=== PATIENT | male | born 1960 | race Caucasian/White ===

== ENCOUNTER 2021-08-04 08:30 | Outpatient (CLI) | payer BC, SELFPAY | END 2021-08-04 08:31 | disposition home or self-care (01) | LOC: SLEEP 08-05 13:28 | PROVIDERS: Family Provider Family Medicine; PCP Family Medicine; Visit Provider Family Medicine | DX: G47.30 Sleep apnea, unspecified (principal); R53.83 Other fatigue | CPT/HCPCS: G0399 ==

== ENCOUNTER 2024-10-22 10:16 | Outpatient (CLI) | payer MEDICARE, OTHER, SELFPAY ==
[2024-10-22 11:00] LABS: Anion Gap 13.2 (5-19); Blood Urea Nitrogen 16 mg/dL (8-23); Calcium 9.6 mg/dL (8.5-10.5); Carbon Dioxide 28 mmol/L (22-29); Chloride 100 mmol/L (98-107); Glomerular Filtration Rate 113.2 mL/min (90-130); Glucose 140 mg/dL (65-115); Osmolality Calculated 287 mOsm/kg (285-295); Potassium 4.2 mmol/L (3.5-5.1); Sodium 137 mmol/L (136-145)
== END 2024-10-22 10:17 | disposition home or self-care (01) ==
LOC: LAB 10:26
PROVIDERS: PCP Family Medicine; Visit Provider Nurse Practitioner Family
DX: I25.5 Ischemic cardiomyopathy (principal); E78.5 Hyperlipidemia, unspecified
CPT/HCPCS: 36415; 80048

== ENCOUNTER → 2025-01-21 09:07 | Outpatient (BNVA) | payer MEDICARE, OTHER, SELFPAY | PROVIDERS: PCP Family Medicine; Visit Provider Family Medicine | DX: I10 Essential (primary) hypertension (principal); I25.5 Ischemic cardiomyopathy; E78.5 Hyperlipidemia, unspecified; E66.9 Obesity, unspecified; G47.33 Obstructive sleep apnea (adult) (pediatric); R73.9 Hyperglycemia, unspecified | CPT/HCPCS: 80053; 80061; 83036; 85025 ==

== ENCOUNTER → 2025-01-30 08:01 | Outpatient (BNVA) | payer MEDICARE, OTHER, SELFPAY | PROVIDERS: PCP Family Medicine; Visit Provider Physician Assistant | DX: M17.0 Bilateral primary osteoarthritis of knee (principal) | CPT/HCPCS: 73560; 73565; 99204 ==

== ENCOUNTER → 2025-03-06 14:08 | Outpatient (BNVA) | payer MEDICARE, OTHER, SELFPAY | PROVIDERS: PCP Family Medicine; Visit Provider Physician Assistant | DX: Z01.818 Encounter for other preprocedural examination (principal); M17.0 Bilateral primary osteoarthritis of knee; M25.569 Pain in unspecified knee | CPT/HCPCS: 36415; 80053; 81001; 85025; 99213 ==

== ENCOUNTER → 2025-03-11 11:54 | Outpatient (BNVA) | payer MEDICARE, OTHER, SELFPAY | PROVIDERS: PCP Family Medicine; Visit Provider Family Medicine | DX: Z01.818 Encounter for other preprocedural examination (principal); R94.31 Abnormal electrocardiogram [ECG] [EKG] | CPT/HCPCS: 93005 ==

== ENCOUNTER 2025-03-12 08:42 | Outpatient (CLI) | payer MEDICARE, OTHER, SELFPAY ==
--- NOTE | 2025-03-12 09:00 | CT_ITS ---
WS: [id number] CT LEFT knee, noncontrast HISTORY: M17.0 - Bilateral primary osteoarthritis of knee TECHNIQUE: Protocol for [facility] total knee replacement has been obtained. This includes axial imaging through the LEFT hip, LEFT knee and LEFT ankle. DLP: 1049.17 mGy.cm COMPARISON: 01/30/2025 radiograph Foot is held in external rotation for this examination. There is also motion artifact. Hip: Narrowing of the SI joints. No bone destruction. Mild narrowing of the LEFT hip joint. Enthesopathy at the greater trochanter. Sigmoid diverticulosis. LEFT knee: Severe joint space narrowing with large hypertrophic osteophytes in all 3 compartments. Normal position of the patella. Patellar enthesopathies. Arterial calcifications. Small suprapatellar effusion. LEFT ankle: Enthesopathy at the Achilles tendon insertion. Degenerative changes in the midfoot. CT/CT knee LT [facility] [id number] IMPRESSION: CT imaging provided for [facility] robotic total knee replacement.
== END 2025-03-12 08:43 | disposition home or self-care (01) ==
LOC: RAD 08:43
PROVIDERS: PCP Family Medicine; Visit Provider Student in an Organized Health Care Education/Training Program
DX: M17.0 Bilateral primary osteoarthritis of knee (principal)
CPT/HCPCS: 73700

== ENCOUNTER 2025-03-25 10:41 | Observation (INO) | payer MEDICARE, OTHER, SELFPAY ==
[2025-03-25] VITALS (21 sets, daily range): BP systolic 112–153; BP diastolic 55–85; PULSE 68–93; RESP 15–23; TEMP 36.3–36.7; O2SAT 91–96; BMI 39.4; BMI 40.6
[2025-03-25] MEDS: acetaminophen 1,000 MG/100 ML PIGGYBACK 400 MG IV ×3 (06:25→18:04)
[2025-03-25 06:43] LABS: Hematocrit 43.4 % (37-53); Hemoglobin 14.60 g/dL (11.27-16.99); Mean Corpuscular HGB Conc 33.6 g/dL (30-55); Mean Corpuscular Hemoglobin 31.8 pg (27-33); Mean Corpuscular Volume 94.6 fl (82-101); Nucleated Red Blood Cells % 0 %; Platelet Count 199 10^3/cmm (157-399); Red Blood Count 4.59 10^6/uL (3.85-5.65); White Blood Count 5.79 10^3/uL (3.29-11.43)
--- NOTE | 2025-03-25 06:55 | W.PM.OPSUD ---
Surgery/Procedure H&P Update DATE OF PROCEDURE: March 25, 2025 DATE H&P PERFORMED: 03/06/25 H&P UPDATE INFORMATION: I have reviewed H&P completed within last 30 days, I have examined patient prior to procedure and No changes to prior documentation PREOP DIAGNOSIS: Left Knee DJD PRIMARY INDICATION FOR PROCEDURE: Left Knee DJD PLANNED PROCEDURE: Operation Date: 03/25/25 07:00 Proposed Procedures p LEFT Chris Robot Total Knee Arthroplasty(Left) - Harry Neal DO
--- NOTE | 2025-03-25 07:12 | P.ANESASSM_ITS ---
Pre-Anesthetic Assessment Height/Weight: Height 1.91 m Weight 143.335 kg Temp Pulse Resp BP Pulse Ox O2 Del Method 97.9 F 68 18 153/85 96 Room Air 03/25/25 06:11 03/25/25 06:11 03/25/25 06:11 03/25/25 06:26 03/25/25 06:11 03/25/25 06:14 Preop Diagnosis: Left Knee DJD Operation Date: 03/25/25 07:00 Proposed Procedures p LEFT Chris Robot Total Knee Arthroplasty(Left) - Harry Neal DO Familial anesthetic complications: None Was Beta Flora taken within 24 hours: N/A Was Clonidine taken within 24 hours: N/A Last intake: Intake Last Liquid Date 03/24/25 Last Liquid Time 20:00 Last Solid Date 03/24/25 Last Solid Time 19:00 Social No alcohol and No tobacco Exam alert, oriented x 3, clear to auscultation bilaterally and regular rate & rhythm Airway Mallampati: Class II Dentition: full Pulmonary Sleep Apnea CV/HEM Coronary Artery Disease and Hypertension Anesthetic Plan ASA status: 3 Anesthesia: Regional (specify below) Risk of > 500 ml blood loss (7ml/kg in children): Yes, adequate IV access and fluids planned Medications/Allergies Home Medications ?Medication ?Instructions ?Recorded ?Confirmed ?Last Taken ?Type diphenhydramine HCl 25 mg capsule 25 mg PO BID PRN Itc krishna 04/21/20 03/21/25 Unknown History (Benadryl) multivitamin (Multiple Vitamins 1 tab PO DAILY 0 03/21/25 03/21/25 History tablet) nitroglycerin 0.4 mg sublingual 0.4 mg sublingual Q5M PRN chest 05/02/24 03/21/25 Unknown Rx tablet pain #25 tabs valsartan 160 mg tablet 160 mg PO BID #180 tabs 12/01/1003/21/25 1 Day Ago Rx ~03/20/25 amlodipine 10 mg tablet 10 mg PO DAILY #90 tabs 09/1903/21/25 1 Day Ago Rx ~03/20/25 atenolol 50 mg tablet 50 mg PO DAILY #90 tabs 09/1903/21/25 1 Day Ago Rx ~03/20/25 rosuvastatin 20 mg tablet (Crestor) 20 mg PO DAILY #90 tabs 10/01/24 03/21/25 03/21/25 Rx chlorthalidone 25 mg tablet 25 mg PO .daily #90 tabs 0 12/03/24 03/21/25 1 Day Ago Rx ~03/20/25 Allergies Allergy/AdvReac Type Severity Reaction Status Date / Time No Known Allergies Allergy Verified 03/21/25 11:02 [facility] Anesthesia Medical History JESS (obstructive sleep apnea) ASHD (arteriosclerotic heart disease) Ischemic cardiomyopathy Obesity Dyslipidemia HTN (hypertension) Surgical History S/P PTCA (percutaneous transluminal coronary angioplasty) Family History Mother Stroke Cancer BREAST Father , AGE 58 CAD (coronary artery disease) Myocardial infarction Social History Smoking and tobacco/nicotine status: never used tobacco/nicotine Alcohol intake: current Substance/Drug Use: never Household members: spouse Marital status: Data Anesthesia 03/25/25 06:15 03/25/25 07:00 Short CBC 03/25/25 Range/Units 06:15 WBC 5.79 (3.29-11.43) 10^3/uL Hgb 14.60 (11.27-16.99) g/dL Hct 43.4 (37-53) % MCV 94.6 (82-101) fl Plt Count 199 (157-399) 10^3/cmm Neut % (Auto) 46.9 % Neut # (Auto) 2.72 (1.8-7.7) 10^3/uL BMP 03/25/25 06:15 Sodium Cancelled Potassium Cancelled Chloride Cancelled Carbon Dioxide Cancelled BUN Cancelled Creatinine Cancelled Glucose Cancelled Calcium Cancelled Blood Bank 03/25/25 06:15 Blood Type Cancelled Rho(D) Type Cancelled Antibody Screen Cancelled Anesthesia Procedures Nerve Block Nerve Block 1: Main Anesthesia: spinal anesthesia block Consent: requested by attending/covering physician, from patient, from other, risks and benefits reviewed and patient agrees to proceed Nerve block location: adductor canal (L) Anesthesia monitors applied: pulse oximetry, EKG, BP cuff and oxygen Nerve block position: supine Anesthetic Used: ropivicaine 0.5% (30 ml) and with decadron (4 mg) Ultrasound used to: recognize landmarks and visualize and ID femerol nerve Interscalene/Femoral BLK: 2 stimuplex 22 g needle used for position and inplane approach, visualize local anesthetic spread and no vascular puncture identified Injection: neg aspiration of heme Patient Tolerated Procedure: well Complications: none
[2025-03-25] MEDS: ceFAZolin 3,000 MG in sodium chloride 0.9% (plus) 100 ML 200 MG IV (07:20)
[2025-03-25] MEDS: tranexamic acid 1,000 mg/10mL SDV 1000 MG IV (07:31)
--- NOTE | 2025-03-25 07:34 | XRR_ITS ---
PROCEDURE INFORMATION: Exam: XR Left Knee Exam date and time: 03/25/2025 10:26 AM Age: 64 years old Clinical indication: Device placement; Joint replacement hardware; Prior surgery; Surgery date: Post-operative (0-2 days); Surgery type: Lef tka; Additional info: Post L tka, do in pacu TECHNIQUE: Imaging protocol: Radiologic exam of the left knee. Views: 1 or 2 views. COMPARISON: CT knee LT [facility] [id number] 03/12/2025 9:10 AM FINDINGS: Bones/joints: Intact well-aligned total knee arthroplasty. No acute fracture. Soft tissues: Skin janki and soft tissue gas noted. XR/XR knee LT 1-2V [id number] IMPRESSION: Expected postoperative appearance of the knee.
[2025-03-25 07:35] LABS: Anion Gap 16.2 (5-19); Blood Urea Nitrogen 20 mg/dL (8-23); Calcium 9.0 mg/dL (8.5-10.5); Carbon Dioxide 25 mmol/L (22-29); Chloride 103 mmol/L (98-107); Creatinine Clr Calc Pharmacy 140.6693; Glucose 159 mg/dL (65-115); Osmolality Calculated 296 mOsm/kg (285-295); Potassium 4.2 mmol/L (3.5-5.1); Sodium 140 mmol/L (136-145)
[2025-03-25] MEDS: tranexamic acid 1,000 mg/10mL SDV 1000 MG XX (08:25)
[2025-03-25] MEDS: ROPivacaine 0.2% Premix 100 mL 200 MG INTRA-ARTI (08:25)
--- NOTE | 2025-03-25 10:11 | W.PM.BPON ---
Date of Procedure: 03/25/2025 Surgeon: Harry Neal DO Design [employer]ing Machine Set Up Operator(s): Stone Neal PA-C Procedure(s) performed: Left total knee arthroplasty?Chris robotic assisted (modifier 22?case complexity secondary to patient's 22 degree flexion contracture deformity and only could flex to 85 degrees, this requiring numerous releases and complexity and gap balancing due to patient's contracture, case required twice as much time for osteophyte removal as well as gap balancing and femur patellar and tibia cuts) Findings of the procedure(s): Patient procedure went as planned without issues or complications he did have a severe flexion contracture deformity as well as significant osteophyte formation. Underwent procedure then as planned without issues or complications taken recovery stable condition. Estimated blood loss: 25 mL Specimen(s) removed: Tibia femur and patellar bone cuts removed Post-operative diagnosis: Left knee DJD severe
--- NOTE | 2025-03-25 10:16 | PM.OP ---
Operative Report Date of procedure: March 25, 2025 Surgeon: Harry Neal DO Veterinary Manager: Stone Neal PA-C: PA was necessary for assistance in this case with leg positioning, assistance with complex balancing and osteophyte removal, retraction and protection of neurovascular structures as well as assistance in implantation, wound closure and dressing application. Procedure: Preoperative diagnosis: Left knee degenerative joint disease Post-op diagnosis: Same, with severe flexion contracture Procedure done: Left total knee arthroplasty?Chris robotic assisted (modifier 22?case complexity secondary to patient's 22 degree flexion contracture deformity and only could flex to 85 degrees, this requiring numerous releases and complexity and gap balancing due to patient's contracture, case required twice as much time for osteophyte removal as well as gap balancing and femur patellar and tibia cuts) Implants: Moro triathlon size 7 femur CR cemented?left Moro triathlon size? 6 tibia universal baseplate cemented Wilmar triathlon asymmetric patella size 38 mm Moro triathlon polyethylene 9mm Surgeon: Harry Neal DO Estimated blood?loss: 25 mL Tourniquet 91minutes IV fluids: 1400 mL Urine output: 200 mL Complications: None Condition: stable Disposition: floor Brief History: Patient is a 64-year-old male with with chronic?left knee degenerative joint disease.? Patient has been worked up in the outpatient setting in the orthopedic office at this point time through shared decision making given? [id number] arthritis as well as failed conservative treatment, and pt would?like to proceed with a?left total knee arthroplasty.? Through shared decision making elected to proceed with surgical intervention for?left total knee arthroplasty with Chris robotic assisted..? We talked about continued conservative treatment and surgical intervention as far as the risk benefits complications alternatives surgical and nonsurgical treatment options.? At this point time understanding patient risks with surgery he agrees to proceed with surgical intervention.? Once again? risk with surgery include but are not?limited to make it better make it worse blood clot, heart attack, stroke, on the table, infection, injury to nerves or vessels, persistent pain, arthrofibrosis, implant failure.? Understanding these risks patient agrees to proceed with surgical intervention consent was obtained in the preoperative holding area for left total knee arthroplasty?Chris robotic assisted.? All questions answered. Procedure: Patient was seen and evaluated in the preoperative holding area.? Consent was reviewed and signed with patient with plan for?left total knee arthroplasty.? All questions answered.? Correct extremity marked.? Patient seen and evaluated by the anesthesia department and once cleared for surgery was taken back to the operative suite.? Patient was placed into a supine position on the OR table.? All bony prominences were well-padded.? Patient was appropriately secured to the bed.? Patient underwent anesthesia per the anesthesia department.? Patient received anesthesia and? Cheatham catheter was placed.? A nonsterile tourniquet was applied to the?left thigh.? At this point in time a final timeout performed.? Patient received appropriate preoperative antibiotics and TXA. Next the?left?lower extremity was then prepped and draped in standard orthopedic fashion. Esmarch tourniquet was used exsanguinate the?left?lower extremity.? Tourniquet was insufflated to 250 mmHg. A standard anterior incision was made over midline of the knee.? Sharp scalpel excision through skin and subcutaneous tissue full-thickness skin flaps were made.? Fascia was elevated off of the extensor retinaculum was stable with medial parapatellar arthrotomy was then made.? The performed standard sequential releases..? Immediately on entry into the joint patient was found to have severe eburnated bone and tricompartmental arthritic changes noted.? With significant osteophyte formation.? Patient of note was found to have a severe contracture immediately encountering the joint or the knee only ranged from roughly 20 to 85 degrees. I had to utilize a rongeur around patella osteophytes immediately just to have mobilization for flexion just to proceed the case. Next the the patella was then stuffed and the knee was then flexed.?? Willis was placed superiorly around the anterior aspect of the femur this was freed of synovium and I subsequently then placed by 2 femur pins to establish my femur arrays for the Chris robot.? These were then placed bicortically and? femur array was then appropriately secured with appropriate visualization.? Next attention was turned towards the tibial rays.? These were then drilled sequentially bicortically in parallel fashion and intraincisional.? I then placed my guide as well as my tibial array on in place.? This was appropriately secured and had excellent visualization with the Chris robot.? Next the tibial checkpoint as well as femur checkpoint were then placed.? At this point time I then subsequently established my head center as well as my medial?lateral malleoli as well as my checkpoints.? Next utilizing standard Chris technology I then mapped out the appropriate points and confirmation points around the femur as well as the tibia in standard fashion.? Once this was then done I then removed all osteophytes in preparation for dynamic testing.? All osteophytes were removed as well as I removed the ACL and the PCL was excised due to its significant tearing and degeneration noted.? Should be noted that this portion of the procedure took excessively long. Patient's severe flexion contracture which was 22 degrees and only ranged to roughly 80 to 85 degrees. This part of the procedure took twice as long to remove the osteophytes then baseline. At this point time the knee was brought into full extension and we performed our standard evaluation of our gap balancing stressing his?ligaments and extension as well as flexion appropriate adjustments were made to have appropriate gap balancing in both flexion and extension.? This plan for final cuts were planned which were made to accommodate for patient's severe flexion contracture as well as correction of deformity within the ligamentous tolerances. Of note this gap balancing and dynamic stress testing and planning for cuts took twice as long as a normal total knee due to its complexity of contracture.? We get a preoperative plan evaluating our implants which was a size 7 femur and a size 6 tibia.? Next we brought in the Chris robot and sequentially made our femur cuts.? All excess bony cuts were then removed.? Finally we made our tibial cut.? Given patient's severe arthritis once again removal of patient's femur and tibial cuts took twice as long as baseline standard total knee practice. Once this was done a standard PCL retractor was then placed into this position I excised the medial and?lateral meniscus.? The tibial cut was then subsequently removed all excess bony debris was removed.? I then utilized a?lamina customer resolution specialist and remove the posterior osteophytes.? At this point time sized the tibia and confirmed this was a size 6.? I utilized our blunt probe to establish rotation of tibial implant.? Once this was done I then placed my tibia size 6 trial in appropriate position and then subsequently placed tibial pins to hold this into place placed and trialed up to a size 9 mm poly as well as a size 7 femur which was appropriately impacted in place knee was then subsequently brought into extension. Trials were then assessed,? this was stable with varus valgus stress in extension as well as had symmetrical translation when brought into flexion demonstrating symmetrical gaps. I had excellent balance gaps in flexion and extension with varus and valgus stresses.? At this point I was satisfied with these implants these were then verified and opened on the back table size 6 tibia, size 7 femur,? size 9 mm polythickness.? We did confirm appropriate gap balancing and stresses as well as alignment utilizingShe Perez and were satisfied with this plan.? ?At this point time with my trials in place I then towel clip the patella everted this made appropriate measurements subsequently utilizing freehand technique performed by patellar resurfacing this was confirmed to be appropriate resection and subsequently sized to be a 38 mm asymmetric. This part of the procedure took twice as well as baseline given patient's severe osteophytes which must have been removed initially. Patient had a severely large patella and considerable deformity this is noted to being 26 mm thick and utilizing freehand technique perform patellar resurfacing. My drill peg guides were then clamped and appropriate position and appropriate position in the patella for appropriate tracking and parallel with the joint.? Pegs were drilled trial implant was placed and the knee was then subsequently ranged and found to have excellent patellar tracking.? Femur pegs were then drilled.? At this point time all of our trial implants were removed.? All checkpoints as well as guidepins and arrays were removed and appropriate counts made.? Satisfied with our tibial placement rotation I then utilized the keel punch and prepped the tibia.? The wound bed? was thoroughly irrigated and dried and prepped for cementation.? Cement was mixed on the back table.? Once cement was ready this was then covered onto the tibia and the tibial baseplate was then impacted and all excess cement was removed.? Next the polyethylene was then impacted into place on the tibial baseplate.? Next cement was placed onto the femur as well as under the femur implants and impacted in to place and all excess cement was extruded and removed.? Knee was taken into full extension? to clear all excess cement was removed.? Warm saline was placed over the joint.? I then towel clip patella and dried for cementation. cemented the patella into place.? This was all clamped and the cement was allowed to cure.? Thorough irrigation performed with pulse?lavage.? I then placed my periarticular injection while the cement was curing.? Once cured the knee was taken through range of motion and had excellent stability and gaps were balanced in flexion and extension.? Tourniquet was then deflated. hemostasis satisfactory with electrocautery.? Vancomycin powder was placed in wound bed for antibiotic infection prophylaxis next I then subsequently closed the capsule with Ethibond suture as well as a running strata fix suture.? Knee was then taken through range of motion 30 times.? Next the skin was then closed in?layered fashion of running stratifix sutures of deep and subcutenous tissue and skin.? ?closed in flexion and janki for skin.? Incision was covered with francisco incisional VAC, with ABDs soft roll and Martin wrap.? Patient was then awakened from anesthesia and taken to PACU in stable condition. Disposition: Patient taken to PACU in stable condition will be admitted to the floor for pain control PT/OT weight-bear as tolerated?left?lower extremity dressing changes as needed, DVT prophylaxis. We will attempt to utilize CPM if possible per patient request. Pain control. Patient will receive appropriate postoperative antibiotics. patient will be seen today by the internal medicine team for medical management.? Patient will follow up with the office in 2 weeks.? Patient understands agrees with current plan.? All questions answered.
--- NOTE | 2025-03-25 10:21 | PM.PACU ---
PACU note Narrative: Patient is a 64-year-old male that just underwent a left total knee arthroplasty. Pt transferred to PACU in stable condition. Dressing is dry. pt is awake and alert. pt can wiggle toes and plantarflex and dorsiflex foot. pt able to perform straight leg raise, Femoral nerve intact. Distal pulses are palpable toes are warm and well-perfused. Cap refill is normal and under 2 seconds. Sensation to foot is intact. Pain is controlled. Exam: awake Disposition: admitted
--- NOTE | 2025-03-25 10:45 | ANE.PACU2 ---
Inpatient post-anesthesia follow up: Airway intact: Yes Vital signs: Temperature 97.7 F Pulse Rate 78 Respiratory Rate 16 Blood Pressure 147/66 Pulse Oximetry 96 Oxygen Delivery Me thod Room Air Oxygen Flow Rate 2 Fraction of Inspir ed Oxygen Hydration adequate: Yes Nausea and vomiting: No Pain level: 1 Mental status: Baseline
--- NOTE | 2025-03-25 11:02 | PC.NURSE ---
1044 - Patient taken to room 272 via bed. VS taken - Temp 97.7, HR 79, BP 137/70, 02 sat 93% on room air. Bed alarm set, CLWR. BRANDON Reyes at bedside.
[2025-03-25] MEDS: sennosides-docusate Tablet 2 TAB PO ×2 (11:54→17:36)
[2025-03-25] MEDS: mupirocin oint 22 gm 1 APPLIC NASAL ×2 (11:54→17:36)
[2025-03-25] MEDS: calcium carb-vit d 600mg/400unit 1 Tablet 1 EACH PO ×2 (11:55→17:36)
[2025-03-25] MEDS: multivitamin therapeutic Tablet 1 TAB PO (11:55)
[2025-03-25] MEDS: chlorhexidine gluconate 0.12% Btl 473 mL 30 ML MUCOUS MEM ×4 (11:56→21:49)
[2025-03-25] MEDS: oxyCODONE 5 mg IR Tab/Cap PO ×3 (12:08→21:48)
[2025-03-25] MEDS: tranexamic acid 1,000 MG/100 ML PREMIX 600 MG IV (14:53)
[2025-03-25] MEDS: ceFAZolin 3,000 MG in sodium chloride 0.9% (plus) 50 ML 100 MG IV ×2 (14:56→23:15)
--- NOTE | 2025-03-25 19:44 | PM.CONSULT ---
Providers/Reason For Consult Consulting Physician/Specialty*: Castillo Mar MD hospitalist Reason for Consult*: Diabetes, sleep apnea, coronary artery disease Requesting Physician: Harry Neal Attending Physician: Harry Neal DO Primary Care Provider: Goldy Vanegas DO History of Present Illness History of Present Illness Akil Kapoor is a 64 year old male with history of ME age 34, morbid obesity up to a maximum of 410 pounds diabetes treated with diet and weight loss and sleep apnea treated with CPAP at a pressure of 19 with a nasal pillows. Patient had left total knee arthroplasty earlier today and has already been up independently to the bathroom twice. 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 Neal asked me to see him regarding diabetes patient states he does not want to be on insulin and does not want to have his blood sugars checked. He states last time he checked it was 100 and his A1c most recently was 7. Patient denies chest pain. He tells me he had PTCA at age 34 and the patient states he did not have a stent in the vessel restenosed but he has collaterals by that time Patient states that his PCP recommended him take a carnivore diet for weight loss. Patient is not on diabetic medications nor is he on GLP-1's for weight loss Medications/Allergies Home Medications ?Medication ?Instructions ?Recorded ?Confirmed ?Last Taken ?Type diphenhydramine HCl 25 mg capsule 25 mg PO BID PRN Itching 04/21/20 03/21/25 Unknown History (Benadryl) multivitamin (Multiple Vitamins 1 tab PO DAILY 04/21/20 03/21/25 03/21/25 History tablet) nitroglycerin 0.4 mg sublingual 0.4 mg sublingual Q5M PRN chest 05/02/24 03/21/25 Unknown Rx tablet pain #25 tabs valsartan 160 mg tablet 160 mg PO BID #180 tabs 08/22/24 03/21/25 1 Day Ago Rx ~03/20/25 amlodipine 10 mg tablet 10 mg PO DAILY #90 tabs 10/01/24 03/21/25 1 Day Ago Rx ~03/20/25 atenolol 50 mg tablet 50 mg PO DAILY #90 tabs 10/01/24 03/21/25 1 Day Ago Rx ~07/02/25 rosuvastatin 20 mg tablet (Crestor) 20 mg PO DAILY #90 tabs 10/01/24 03/21/25 03/21/25 Rx chlorthalidone 25 mg tablet 25 mg PO .daily #90 tabs 12/03/24 03/21/25 1 Day Ago Rx ~03/20/25 oxycodone 5 mg tablet 5 mg PO Q6H PRN pain postop 7 days 03/25/25 Unknown Rx #28 tabs Allergies Allergy/AdvReac Type Severity Reaction Status Date / Time No Known Allergies Allergy Verified 03/21/25 11:02 Current Medications Generic Name Dose Route Start Last Admin Trade Name Freq PRN Reason Stop Dose Admin Calcium Carbonate 1 each 03/25/25 10:57 03/25/25 17:36 Calcium Carb-Vit D 600mg/400unit 1 Tablet PO 1 each BID JERRY Administration Chlorhexidine Gluconate 30 ml 03/25/25 10:57 03/25/25 17:36 Chlorhexidine Gluconate 0.12% Btl 473 Ml MUCOUS MEM 30 ml QID JERRY Administration Acetaminophen 1,000 mg in 100 mls @ 400 mls/hr 03/25/25 10:57 03/25/25 18:41 Acetaminophen IV 03/26/25 03:11 Infused Q8H JERRY Infusion Lactated Ringer's 1,000 mls @ 100 mls/hr 03/25/25 10:57 03/25/25 15:59 Lactated Ringers IV 100 mls/hr .Q10H JRERY Infusion Cefazolin Sodium 3,000 mg/ 50 mls @ 100 mls/hr 03/25/25 15:30 03/25/25 17:03 Sodium Chloride IV 03/26/25 07:59 Infused Q8H JERRY Infusion Protocol Ketorolac Tromethamine 15 mg 03/25/25 10:57 03/25/25 16:44 Ketorolac 30 Mg/Ml Inj IVP 15 mg Q6H PRN Administration MODERATE TO SEVERE PAIN Multivitamins Therapeutic 1 tab 03/25/25 10:57 03/25/25 11:55 Multivitamin Therapeutic Tablet PO 1 tab DAILY JERRY Administration Mupirocin 1 applic 03/25/25 10:57 03/25/25 17:36 Mupirocin Oint 22 Gm NASAL 03/30/25 10:56 1 applic BID JERRY Administration Protocol Oxycodone HCl 5 mg 03/25/25 10:57 03/25/25 16:43 Oxycodone 5 Mg Ir Tab/Cap PO 5 mg Q4H PRN Administration MODERATE PAIN Polysaccharide Iron Complex 150 mg 03/25/25 10:57 03/25/25 17:36 Iron Polysaccharide Complex 150 Mg Capsule PO 150 mg BIDWM JERRY Administration Senna/Docusate Sodium 2 tab 03/25/25 10:57 03/25/25 17:36 Sennosides-Docusate Tablet PO 2 tab BID JERRY Administration PFSH Acute PFSH: Medical History (Updated 03/25/25 @ 19:50 by Castillo Mar MD) Diabetes JESS (obstructive sleep apnea) ASHD (arteriosclerotic heart disease) Ischemic cardiomyopathy Obesity Dyslipidemia HTN (hypertension) Surgical History (Updated 03/25/25 @ 19:50 by Castillo Mar MD) S/P knee surgery S/P PTCA (percutaneous transluminal coronary angioplasty) Family History Mother Stroke Cancer BREAST Father , AGE 58 CAD (coronary artery disease) Myocardial infarction Social History Smoking and tobacco/nicotine status: never used tobacco/nicotine Alcohol intake: current Substance/Drug Use: never Household members: spouse Marital status: Current occupation: [employer]/ retired Vitals/I&O/Wt Last Vital Signs Temp 98.1 F 03/25/25 17:55 Pulse 92 03/25/25 17:55 Resp 18 03/25/25 17:55 BP 151/84 03/25/25 17:55 Pulse Ox 95 03/25/25 17:55 O2 Del Method Room Air 03/25/25 11:41 O2 Flow Rate 2 03/25/25 10:44 03/25/25 03/25/25 03/25/25 06:59 14:59 22:59 Intake Total 1939 813.333 / 2753.333 Output Total 225 / 225 1400 / 1625 Balance 1715 / 1715 -586.667 / 1128.333 Weight last 48 hrs Weight 143.335 kg Weight 143.335 kg Physical Exam Narrative: General well-developed well-nourished male morbidly obese CV regular rate and rhythm Lungs clear to auscultation bilaterally Abdomen positive bowel tones soft nontender Calves no tenderness cords pretibial edema Urinary Catheter Management: Cheatham Latex Free: Cath Placed During This Visit: yes Reason for Continuing Indwelling Catheter: Required Immobilization for Trauma or Surgery or Anesthesia Urinary Catheter Date of Insertion: 03/25/25 Urinary Catheter Time of Insertion: 07:40 Data 03/25/25 06:15 03/25/25 07:00 A&P Assessment and plan (1) JESS (obstructive sleep apnea): Patient will continue on his home CPAP and he brought his ResMed 10. I helped him get this set up for use tonight (2) Diabetes: Patient declines blood sugar checks. He is willing to be on a carb restricted diet so I will put him on 2100-calorie ADA diet (3) S/P PTCA (percutaneous transluminal coronary angioplasty): Continue with low-fat diet. I discouraged carnivore diet as he has known tendency to build plaque. Would also recommend checking high-sensitivity C-reactive protein and lipoprotein a. Will add that to his morning labs Patient states that he is not worried about dying and feels that he has lived a good life at age 64 with 5 grandkids so does not want to make too much change (4) Obesity: Counseled regarding caloric deficit. Counseled regarding daily weights and he states he does that and has been losing weight (5) HTN (hypertension): Resume home blood pressure meds (6) Dyslipidemia: Resume rosuvastatin. He has an LDL of only 26 which is very good triglycerides elevated to 68. Could consider treatment for that. Will look at that and the setting of his lipoprotein a and high-sensitivity C-reactive protein PDMP PDMP Reviewed: Not Reviewed Consult Attestations Medical Necessity Statement: Anticipate the patient will be in the hospital 1-2 more midnights as he is recovering quickly Coding Level of Care Code 59445 Diagnoses JESS (obstructive sleep apnea) G47.33 Diabetes E11.9 S/P PTCA (percutaneous transluminal coronary angioplasty) Z98.61 Obesity E66.9 Essential hypertension I10 Hypertension type: essential hypertension Dyslipidemia E78.5 Time Spent (min) 40
--- NOTE | 2025-03-25 21:34 | PC.RESP ---
cpap pt has home cpap set up at bedside, pt is self sufficient with use of machine
[2025-03-26] VITALS (9 sets, daily range): BP systolic 136–162; BP diastolic 74–79; PULSE 62–74; RESP 16–18; TEMP 36.5–36.6; O2SAT 93–95
[2025-03-26] MEDS: oxyCODONE 5 mg IR Tab/Cap PO ×3 (01:29→13:34)
[2025-03-26] MEDS: acetaminophen 1,000 MG/100 ML PIGGYBACK 400 MG IV (03:49)
[2025-03-26 04:57] LABS: Hematocrit 36.2 % (37-53); Hemoglobin 12.10 g/dL (11.27-16.99); Mean Corpuscular HGB Conc 33.4 g/dL (30-55); Mean Corpuscular Hemoglobin 31.5 pg (27-33); Mean Corpuscular Volume 94.3 fl (82-101); Nucleated Red Blood Cells % 0 %; Platelet Count 171 10^3/cmm (157-399); Red Blood Count 3.84 10^6/uL (3.85-5.65); White Blood Count 9.49 10^3/uL (3.29-11.43)
[2025-03-26 05:14] LABS: Anion Gap 15.0 (5-19); Blood Urea Nitrogen 17 mg/dL (8-23); Calcium 8.7 mg/dL (8.5-10.5); Carbon Dioxide 25 mmol/L (22-29); Chloride 101 mmol/L (98-107); Creatinine Clr Calc Pharmacy 138.8724; Glucose 133 mg/dL (65-115); Osmolality Calculated 287 mOsm/kg (285-295); Potassium 4.0 mmol/L (3.5-5.1); Sodium 137 mmol/L (136-145)
[2025-03-26 05:44] LABS: CRP High Sensitivity Cardiac 0.560 mg/dL (0.0-0.3)
[2025-03-26] MEDS: ceFAZolin 3,000 MG in sodium chloride 0.9% (plus) 50 ML 100 MG IV (06:15)
[2025-03-26] MEDS: sennosides-docusate Tablet 2 TAB PO (08:46)
[2025-03-26] MEDS: multivitamin therapeutic Tablet 1 TAB PO (08:46)
[2025-03-26] MEDS: calcium carb-vit d 600mg/400unit 1 Tablet 1 EACH PO (08:46)
[2025-03-26] MEDS: mupirocin oint 22 gm 1 APPLIC NASAL (08:49)
[2025-03-26] MEDS: chlorhexidine gluconate 0.12% Btl 473 mL 30 ML MUCOUS MEM (08:49)
--- NOTE | 2025-03-26 10:21 | PC.CHAP ---
Pastoral Care Encounter/Spiritual Assessment Type of Contact [] Declined clerical grader visit [] Patient/Family/Request visit [] Outpatient visit [] Follow-up visit [] Physician referral [] Code/Alert [x] Routine visit [] Staff referral [] Actively dying [] Patient sleeping [] Family support [] [] Out of room [] Palliative care [] [] Receiving care in room [] Pre-surgical visit [] Trauma [] Long length of stay [] ICU visit [] Other: Relational/Emotional Strength [x] Patient feels connected with others/family/visitors/staff [] Distress [] Loneliness/isolation [] Abandonment Spirituality of Patient [x] Person of Abbie [] Attends Zoroastrian of their Abbie [x] Believes in Prayer [] Reads Bible or Roman Catholic materials [] There are Spiritual issues to be addressed Flange Turner Interventions [x] Prayer [x] Active listening [] Non-anxious presence [x] Spiritual/emotional support [] Crisis/trauma care [] Spiritual counseling [] Bereavement support [] Provided bereavement packet [] Provided Bible/devotional materials [] Provided toy/stuffed animal, coloring book to patient or family member [] Provided Communion [] Anointing/[place] [] Salvation [x] Completed spiritual assessment [] Other: Impact on Illness or Injury [] Angry [] Fearful [] Anxious [] Often cries [] Exhaustion [] Unable to work [] Unable to attend scientologist [] Unable to walk/stand [] Unable to read [] Unable to drive [] Unable to eat/drink [] Unable to sleep [] Unable to be with family [] Patient intubated [] Other: Summary Time spent with patient 5 min
--- NOTE | 2025-03-26 12:30 | PM.DCS ---
Discharge Providers Date of Admission: 03/25/25 10:41 Date of Discharge: March 26, 2025 Attending Provider at Admission: Harry Neal DO Attending Provider at Discharge: Harry Neal DO Consults: Dr Mar Primary Care Provider: Goldy Vanegas DO Diagnoses at Discharge Discharge Diagnosis 1. JESS (obstructive sleep apnea): 2. Diabetes: 3. S/P PTCA (percutaneous transluminal coronary angioplasty): 4. Obesity: 5. Essential hypertension: 6. Dyslipidemia: Reason for Visit Reason for Visit: M17.0 Brief History: Status post left total knee arthroplasty?Chris robotic assisted Hospital Course Hospital Course Patient presented to the preoperative holding area with plan for left total knee arthroplasty after patient has been worked up in the outpatient setting for failed conservative treatment of [ left] knee degenerative joint disease. Once cleared by anesthesia for surgery patient subsequently was taken back to the operative suite underwent anesthesia per anesthesia department and then subsequently underwent a [ left] total knee arthroplasty. Procedure was performed without any complications patient was taken to PACU in stable condition patient recovered well in PACU and then was admitted to the floor postoperatively internal medicine was consulted and on board for medical management and assistance with care. Patient received appropriate PT/OT, postoperative antibiotics, postoperative TXA, pain control, postoperative DVT prophylaxis. Elevation and ice. Patient encouraged for knee range of motion allowed weightbearing as tolerated to the operative lower extremity. Dressing was changed as needed, labs were monitored daily. Patient recovered well postoperatively and worked well and progressed well with therapy. It was determined on postoperative day 1 the patient was stable for discharge from an orthopedic standpoint and medicine. Patient was comfortable with discharge and plan was discharged home. Patient received appropriate discharge instructions as well as pain medication and DVT prophylaxis postoperatively. Given appropriate instructions for dressing management. Patient will follow-up with Dr. Neal/orthopedics in the office in 2 weeks. All questions answered. Understand if there is any issues questions or concerns and contact the office. Physical Exam Narrative: Left knee examination: Dressing on in place, clean dry and intact. No evidence of saturation. Patient has normal postoperative swelling and tenderness to palpation to the knee. Compartments are soft compressible,'s calf soft and nontender. Sensations intact to light touch distally. Distal pulses are palpable. Patient is able to wiggle toes as well as plantarflex and dorsiflex ankle. Urinary Catheter Management: Cheatham Latex Free: Cath Placed During This Visit: yes, but has since been removed by the nurse Reason for Continuing Indwelling Catheter: Other Urinary Catheter Date of Insertion: 03/25/25 Urinary Catheter Time of Insertion: 07:40 Date Urinary Catheter Removed: 03/26/25 Time Urinary Catheter Discontinued: 06:17 Discharge Data Studies Completed and Pending Completed Studies During Hospitalization Category Date Time Status XR knee LT 1-2V 17992 Routine Exams 03/25/25 07:34 Completed Radiology Impressions Knee X-Ray 03/25/25 07:34 IMPRESSION: Expected postoperative appearance of the knee. Laboratory Results WBC 9.49 10^3/uL (3.29-11.43) 03/26/25 04:44 RBC 3.84 10^6/uL (3.85-5.65) L 03/26/25 04:44 Hgb 12.10 g/dL (11.27-16.99) 03/26/25 04:44 Hct 36.2 % (37-53) L 03/26/25 04:44 MCV 94.3 fl (82-101) 03/26/25 04:44 MCH 31.5 pg (27-33) 03/26/25 04:44 MCHC 33.4 g/dL (30-55) 03/26/25 04:44 RDW 13.1 % (12.1-15.1) 03/26/25 04:44 Plt Count 171 10^3/cmm (157-399) 03/26/25 04:44 MPV 10.8 fL (7.4-10.4) H 03/26/25 04:44 Neut % (Auto) 68.4 % 03/26/25 04:44 Lymph % (Auto) 18.9 % 03/26/25 04:44 [place] % (Auto) 10.9 % 03/26/25 04:44 Eos % (Auto) 1.3 % 03/26/25 04:44 Baso % (Auto) 0.2 % 03/26/25 04:44 Neut # (Auto) 6.50 10^3/uL (1.8-7.7) 03/26/25 04:44 Lymph # (Auto) 1.8 10^3/uL (0.8-4.8) 03/26/25 04:44 [place] # (Auto) 1.0 10^3/uL (0.2-0.9) H 03/26/25 04:44 Eos # (Auto) 0.1 10^3/uL (0.0-0.8) 03/26/25 04:44 Baso # (Auto) 0.0 10^3/uL (0.0-0.1) 03/26/25 04:44 Nucleated RBC % (auto) 0 % 03/26/25 04:44 Nucleated RBCs # 0.0 /100WBC 03/26/25 04:44 Sodium 137 mmol/L (136-145) 03/26/25 04:44 Potassium 4.0 mmol/L (3.5-5.1) 03/26/25 04:44 Chloride 101 mmol/L (98-107) 03/26/25 04:44 Carbon Dioxide 25 mmol/L (22-29) 03/26/25 04:44 Anion Gap 15.0 (5-19) 03/26/25 04:44 BUN 17 mg/dL (8-23) 03/26/25 04:44 Creatinine 0.8 mg/dL (0.7-1.2) 03/26/25 04:44 GFR Calculation 97.0 mL/min (90-130) 03/26/25 04:44 Glucose 133 mg/dL (65-115) H 03/26/25 04:44 Calculated Osmolality 287 mOsm/kg (285-295) 03/26/25 04:44 Calcium 8.7 mg/dL (8.5-10.5) 03/26/25 04:44 C-Reactive Protein 5.2 mg/L (0.0-4.9) H 03/26/25 04:44 C-React Prot High Sens 0.560 mg/dL (0.0-0.3) H 03/26/25 04:44 Lipoprotein (a) 37 nmol/L (<75) 03/25/25 20:08 Blood Type O Positive 03/25/25 07:00 Rho(D) Type Rh positive 03/25/25 07:00 Antibody Screen Negative 03/25/25 07:00 Vitals Last Vital Signs Temp 97.7 F 03/26/25 14:01 Pulse 68 03/26/25 14:01 Resp 17 03/26/25 14:01 BP 162/74 03/26/25 14:01 Pulse Ox 94 07/08/25 14:01 O2 Del Method Room Air 03/26/25 11:00 O2 Flow Rate 2 03/25/25 10:44 Discharge Plan Discharge Patient Disposition: Home Health Service Condition: Stable Prescriptions: New Eliquis 2.5 mg tablet 2.5 mg PO BID 14 Days Qty: 28 0RF methocarbamol 500 mg tablet 500 mg PO TID PRN (Reason: muscle spasms/pain) 14 Days Qty: 42 0RF cefadroxil 500 mg capsule 500 mg PO BID 7 Days Qty: 14 0RF oxycodone 5 mg tablet 5 mg PO Q6H PRN (Reason: pain postop) 7 Days Qty: 28 0RF Continued diphenhydramine HCl [Benadryl] 25 mg capsule 25 mg PO BID PRN (Reason: Itching) multivitamin [Multiple Vitamins] Tablet 1 tab PO DAILY valsartan 160 mg tablet 160 mg PO BID Qty: 180 3RF nitroglycerin 0.4 mg tablet, sublingual 0.4 mg sublingual Q5M PRN (Reason: chest pain) Qty: 25 3RF Rx Instructions: do not exceed 3 doses per episode amlodipine 10 mg tablet 10 mg PO DAILY Qty: 90 3RF rosuvastatin [Crestor] 20 mg tablet 20 mg PO DAILY Qty: 90 3RF atenolol 50 mg tablet 50 mg PO DAILY Qty: 90 3RF chlorthalidone 25 mg tablet 25 mg PO .daily Qty: 90 3RF [employer] Technician OK for DC: Orthopedics Discharge Order = DC NOW: Discharge Order (Routine); Ordered 03/26/25 Ordered By: Harry Neal Referrals: [facility] [Outside] Harry Neal DO [Physician, Orthopedics] - 04/09/25 8:45 am Discharge Diet: Regular Discharge Activity: Limit activity as instructed Patient Instructions: Cefadroxil (By mouth) (Duricef), Methocarbamol (By mouth) (Robaxin, Robaxin-750), Oxycodone, Rapid Release (By mouth), Ondansetron (By mouth) (Zofran, Zofran ODT, Zuplenz), Apixaban (By mouth) (Eliquis), Acute Wound Care (DC), Precautions after Total Joint Replacement Surgery (DC), Joint Replacement Surgery (DC), Opioid Safety, Post Anesthesia Care, Patient Portal & Kimberley Instructions Activity Restrictions/Additional Instructions: Orthopedic discharge instructions: May remove Martin bandage after 72 hours, remove the Martin bandage and cotton dressing all the way to the geneva incisional VAC dressing [place] Dressing--Keep dressing on and dry. After 3 days you can remove some of the dressing and shower. disconnect battery pack when showering. [place] dressing will stay on until follow up appt in 2 weeks. The battery pack for the dressing will at 5-7 days. Battery pack can be removed and discarded once batteries . Patient may weight-bear as tolerate to the operative extremity Utilize walker as needed Encourage knee range of motion Ice and elevate as needed for pain and swelling Take pain medication as prescribed Take antinausea medication as needed Take muscle relaxer as prescribed Take antibiotic as prescribed for antibiotic infection prophylaxis Pain medication can cause constipation. take [id number] stool softeners and or MiraLAX. Take prescribed Eliquis twice daily for the next 14 days for blood clot prevention May supplement for pain with Tylenol [id number]-[id number] as needed(1000 mg every 8 hours-do not exceed more than 3000mg in 24-hour period) No baths or soaks Follow-up in the orthopedic office in 2 weeks Contact the office for any questions or concerns Discharge Attestations Time Spent in Discharge Care*: less than 30 min Quality Metrics Clinical Quality Measures [ No reported AMI, CVA or VTE this stay] Coding Level of Care Code Acute Code for Chg Fwd Diagnoses JESS (obstructive sleep apnea) G47.33 Diabetes E11.9 S/P PTCA (percutaneous transluminal coronary angioplasty) Z98.61 Obesity E66.9 Essential hypertension I10 Hypertension type: essential hypertension Dyslipidemia E78.5
== END 2025-03-26 14:02 | disposition home health service (06) ==
LOC: MEDSURG 10:41
PROVIDERS: Internal Medicine; Physician Assistant; Admitting Provider Student in an Organized Health Care Education/Training Program; PCP Family Medicine; Visit Provider Student in an Organized Health Care Education/Training Program
PROC: 8E0Y0CZ Robotic Assisted Procedure of Lower Extremity, Open Approach (ICD-10-PCS; CPT 27447; principal; 2025-03-25 07:00)
DX: M17.12 Unilateral primary osteoarthritis, left knee (principal); G47.33 Obstructive sleep apnea (adult) (pediatric); I25.5 Ischemic cardiomyopathy; E66.9 Obesity, unspecified; Z68.41 Body mass index [BMI] 40.0-44.9, adult; I10 Essential (primary) hypertension; E78.5 Hyperlipidemia, unspecified; E11.9 Type 2 diabetes mellitus without complications
CPT/HCPCS: 27447; 20985; 36415; 51702; 73560; 80048; 83695; 85025; 86140; 86141; 86850; 86900; 97110; 97116; 97161; 97165; 97530; A4216; C1713; C1776; G0378; J0131; J0171; J0690; J1100; J1885; J2250; J2704; J2795; J3370; J7030; J7120; J9999; L8699

== ENCOUNTER → 2025-04-09 08:24 | Outpatient (BNVA) | payer MEDICARE, OTHER, SELFPAY | PROVIDERS: PCP Family Medicine; Visit Provider Physician Assistant | DX: Z98.890 Other specified postprocedural states (principal); Z96.652 Presence of left artificial knee joint | CPT/HCPCS: 73560; 73565; 99024 ==

== ENCOUNTER → 2025-05-21 09:21 | Outpatient (BNVA) | payer MEDICARE, OTHER, SELFPAY | PROVIDERS: PCP Family Medicine; Visit Provider Physician Assistant | DX: Z98.890 Other specified postprocedural states (principal); Z96.652 Presence of left artificial knee joint | CPT/HCPCS: 73560; 73565; 99024 ==

== ENCOUNTER → 2025-06-04 09:45 | Outpatient (BNVA) | payer MEDICARE, OTHER, SELFPAY | PROVIDERS: PCP Family Medicine; Visit Provider Physician Assistant | DX: M19.012 Primary osteoarthritis, left shoulder (principal) | CPT/HCPCS: 73030; 99213 ==

== ENCOUNTER → 2025-06-26 10:03 | Outpatient (BNVA) | payer MEDICARE, OTHER, SELFPAY | PROVIDERS: PCP Family Medicine; Visit Provider Student in an Organized Health Care Education/Training Program | DX: M17.10 Unilateral primary osteoarthritis, unspecified knee (principal); Z96.652 Presence of left artificial knee joint | CPT/HCPCS: 99214 ==

== ENCOUNTER → 2025-07-05 09:26 | Outpatient (BNVA) | payer MEDICARE, OTHER, SELFPAY | PROVIDERS: PCP Family Medicine; Visit Provider Student in an Organized Health Care Education/Training Program | DX: M19.012 Primary osteoarthritis, left shoulder (principal); Z71.89 Other specified counseling | CPT/HCPCS: 20610; 77002; J3301; J9999 ==

== ENCOUNTER 2025-07-08 10:07 | Outpatient (CLI) | payer MEDICARE, OTHER, SELFPAY ==
--- NOTE | 2025-07-08 10:15 | CT_ITS ---
WS: [id number] CT RIGHT KNEE, NONCONTRAST TECHNIQUE: Noncontrast CT of the RIGHT knee to include the RIGHT hip and ankle. CLINICAL INFORMATION: surgical planning COMPARISON: None. DLP: 1373.[address] scans at [facility] use at least one of these dose optimization techniques: automated exposure control; mA and/or kV adjustment per patient size (includes targeted exams where dose is matched to clinical indication); or iterative reconstruction. FINDINGS: Advanced tricompartmental arthritis RIGHT knee. Hypertrophic changes along the joint line. Hypertrophic patella. Small suprapatellar effusion. Vascular calcification. Calcified loose bodies in the suprapatella bursa. Ankylosis sacroiliac joints. Moderate to advanced degenerative narrowing RIGHT greater than LEFT hips. Hypertrophic changes. Sigmoid diverticulosis. CT/CT knee RT [facility] [id number] IMPRESSION: Images obtained for preoperative purposes.
== END 2025-07-08 10:08 | disposition home or self-care (01) ==
LOC: RAD 10:09
PROVIDERS: PCP Family Medicine; Visit Provider Student in an Organized Health Care Education/Training Program
DX: M17.11 Unilateral primary osteoarthritis, right knee (principal)
CPT/HCPCS: 73700

== ENCOUNTER → 2025-07-22 08:27 | Outpatient (BNVA) | payer MEDICARE, OTHER, SELFPAY | PROVIDERS: PCP Family Medicine; Visit Provider Family Medicine | DX: I10 Essential (primary) hypertension (principal); I25.5 Ischemic cardiomyopathy; E78.5 Hyperlipidemia, unspecified; E11.9 Type 2 diabetes mellitus without complications; G47.33 Obstructive sleep apnea (adult) (pediatric) | CPT/HCPCS: 80053; 80061; 83036; 85025 ==

== ENCOUNTER 2025-08-09 09:59 | Outpatient (CLI) | payer MEDICARE, OTHER, SELFPAY ==
[2025-08-09 11:44] LABS: Glucose Urine UA Negative (Normal); Nitrate Urine Negative (Negative); Specific Gravity, Urine 1.019 (1.005-1.030)
[2025-08-09 11:45] LABS: Hematocrit 42.2 % (37-53); Hemoglobin 14.30 g/dL (11.27-16.99); Mean Corpuscular HGB Conc 33.9 g/dL (30-55); Mean Corpuscular Hemoglobin 31.9 pg (27-33); Mean Corpuscular Volume 94.2 fl (82-101); Nucleated Red Blood Cells % 0 %; Platelet Count 179 10^3/cmm (157-399); Red Blood Count 4.48 10^6/uL (3.85-5.65); White Blood Count 5.10 10^3/uL (3.29-11.43)
[2025-08-09 11:49] LABS: Add Urine Microscopic? YES
[2025-08-09 12:08] LABS: Alanine Aminotransferase 33 U/L (0-41); Albumin Level 4.0 g/dL (3.5-5.2); Alkaline Phosphatase 41 U/L (40-130); Aspartate Amino Transferase 23 U/L (0-40); Blood Urea Nitrogen 20 mg/dL (8-23); Calcium 9.0 mg/dL (8.5-10.5); Carbon Dioxide 24 mmol/L (22-29); Chloride 103 mmol/L (98-107); Globulin 2.9 g/dL (1.3-4.6); Glucose 150 mg/dL (65-115); Osmolality Calculated 291 mOsm/kg (285-295); Sodium 138 mmol/L (136-145); Total Protein 6.9 g/dL (6.6-8.7)
[2025-08-09 12:24] LABS: Anion Gap 14.9 (5-19); Potassium 3.9 mmol/L (3.5-5.1)
== END 2025-08-09 10:00 | disposition home or self-care (01) ==
LOC: LAB 10:00
PROVIDERS: PCP Family Medicine; Visit Provider Student in an Organized Health Care Education/Training Program
DX: Z01.818 Encounter for other preprocedural examination (principal)
CPT/HCPCS: 80053; 81001; 85025

== ENCOUNTER 2025-08-19 16:08 | Observation (INO) | payer MEDICARE, OTHER, SELFPAY ==
[2025-08-19] VITALS (31 sets, daily range): BP systolic 111–188; BP diastolic 61–84; PULSE 61–100; RESP 15–21; TEMP 36.4–36.8; O2SAT 93–99; BMI 41.4
[2025-08-19] MEDS: acetaminophen 1,000 MG/100 ML PIGGYBACK 400 MG IV ×2 (08:38→18:11)
[2025-08-19 08:43] LABS: Hematocrit 44.0 % (37-53); Hemoglobin 14.80 g/dL (11.27-16.99); Mean Corpuscular HGB Conc 33.6 g/dL (30-55); Mean Corpuscular Hemoglobin 31.1 pg (27-33); Mean Corpuscular Volume 92.4 fl (82-101); Nucleated Red Blood Cells % 0 %; Platelet Count 203 10^3/cmm (157-399); Red Blood Count 4.76 10^6/uL (3.85-5.65); White Blood Count 5.62 10^3/uL (3.29-11.43)
[2025-08-19 08:59] LABS: Anion Gap 15.9 (5-19); Blood Urea Nitrogen 17 mg/dL (8-23); Calcium 9.2 mg/dL (8.5-10.5); Carbon Dioxide 26 mmol/L (22-29); Chloride 100 mmol/L (98-107); Glucose 176 mg/dL (65-115); Osmolality Calculated 292 mOsm/kg (285-295); Potassium 3.9 mmol/L (3.5-5.1); Sodium 138 mmol/L (136-145)
--- NOTE | 2025-08-19 09:01 | ANES.PREANE2 ---
Pre-Anesthetic Assessment Height/Weight: Height 1.88 m Weight 146.51 kg Temp Pulse Resp BP Pulse Ox O2 Del Method 97.7 F 66 18 143/75 95 Room Air 08/19/25 08:31 08/19/25 08:31 08/19/25 08:31 08/19/25 08:31 08/19/25 08:31 08/19/25 08:31 Operation Date: 08/19/25 09:25 Proposed Procedures p RIGHT Chris Robot Total Knee Arthroplasty(Right) - Harry Neal DO Familial anesthetic complications: None Was Beta Flora taken within 24 hours: Yes Was Clonidine taken within 24 hours: N/A Last intake: Intake Last Liquid Date 08/18/25 Last Liquid Time 20:00 Last Solid Date 08/18/25 Last Solid Time 20:00 Social No alcohol and No tobacco Exam alert, oriented x 3, clear to auscultation bilaterally and regular rate & rhythm Airway Mallampati: Class IV Pulmonary Sleep Apnea CV/HEM Coronary Artery Disease and Hypertension Metabolic Hyperlipidemia and Morbid Obesity Anesthetic Plan ASA status: 3 Anesthesia: Regional (specify below) Risk of > 500 ml blood loss (7ml/kg in children): No Medications/Allergies Home Medications ?Medication ?Instructions ?Recorded ?Confirmed ?Last Taken ?Type multivitamin (Multiple Vitamins 1 tab PO DAILY 04/21/20 08/14/25 08/13/25 History tablet) omega 5-ttb-yfv-fish oil 100 1 cap PO DAILY 05/21/25 08/19/25 08/05/25 History mg-160 mg-1,000 mg capsule (Fish Oil) amlodipine 10 mg tablet 10 mg PO DAILY #90 tabs 06/18/25 08/14/25 08/18/25 Rx atenolol 50 mg tablet 50 mg PO DAILY #90 tabs 06/18/25 08/14/25 08/18/25 Rx chlorthalidone 25 mg tablet 25 mg PO .daily #90 tabs 06/18/25 08/14/25 08/18/25 Rx rosuvastatin 20 mg tablet (Crestor) 20 mg PO DAILY #90 tabs 06/18/25 08/14/25 08/18/25 Rx valsartan 160 mg tablet 160 mg PO BID #180 tabs 06/18/25 08/14/25 08/18/25 Rx Allergies Allergy/AdvReac Type Severity Reaction Status Date / Time No Known Allergies Allergy Verified 07/22/25 08:13 Current Medications Generic Name Dose Route Start Last Admin Trade Name Abida PRN Reason Stop Dose Admin Sodium Chloride 1,000 mls @ 30 mls/hr 08/19/25 08:00 08/19/25 08:47 Sodium Chloride 0.9% IV 08/20/25 07:59 30 mls/hr .Q24H JERRY Administration PFSH Anesthesia Medical History Diabetes JESS (obstructive sleep apnea) ASHD (arteriosclerotic heart disease) Ischemic cardiomyopathy Obesity Dyslipidemia HTN (hypertension) Surgical History S/P knee surgery S/P PTCA (percutaneous transluminal coronary angioplasty) Family History Mother Stroke Cancer BREAST Father , AGE 58 CAD (coronary artery disease) Myocardial infarction Social History Smoking and tobacco/nicotine status: never used tobacco/nicotine Alcohol intake: current Substance/Drug Use: never Household members: spouse Marital status: Current occupation: [employer]/ retired Data Anesthesia 08/19/25 08:25 08/19/25 08:25 Short CBC 08/19/25 Range/Units 08:25 WBC 5.62 (3.29-11.43) 10^3/uL Hgb 14.80 (11.27-16.99) g/dL Hct 44.0 (37-53) % MCV 92.4 (82-101) fl Plt Count 203 (157-399) 10^3/cmm Neut % (Auto) 53.4 % Neut # (Auto) 3.00 (1.8-7.7) 10^3/uL BMP 08/19/25 08:25 Sodium 138 Potassium 3.9 Chloride 100 Carbon Dioxide 26 BUN 17 Creatinine 0.7 Calcium 9.2 Anesthesia Procedures Nerve Block Nerve Block 1: Main Anesthesia: spinal anesthesia block Time Out Performed: Yes Consent: requested by attending/covering physician, from patient, from other, risks and benefits reviewed and patient agrees to proceed Nerve block location: adductor canal (R) Anesthesia monitors applied: pulse oximetry, EKG, BP cuff and oxygen Nerve block position: supine Anesthetic Used: ropivicaine 0.5% (30 ml) and with decadron (4 mg) Ultrasound used to: recognize landmarks and visualize and ID femerol nerve Interscalene/Femoral BLK: 4 stimuplex 21 g needle used for position and inplane approach, visualize local anesthetic spread and no vascular puncture identified Injection: neg aspiration of heme Patient Tolerated Procedure: well Complications: none
--- NOTE | 2025-08-19 10:40 | W.PM.OPSFHP ---
Same Day Surgery H&P Indication for Procedure/HPI DATE OF PROCEDURE: August 19, 2025 CHIEF COMPLAINT/INDICATIONFOR SURGICAL PROCEDURE: Right knee DJD PREOP DIAGNOSIS: Right knee DJD PLANNED PROCEDURE: Operation Date: 08/19/25 09:25 Proposed Procedures p RIGHT Chris Robot Total Knee Arthroplasty(Right) - Harry Neal, DO Medications/Allergies* Home Medications ?Medication ?Instructions ?Recorded ?Confirmed ?Type multivitamin (Multiple Vitamins 1 tab PO DAILY 04/21/20 08/14/25 History tablet) omega 0-dnv-npo-fish oil 100 1 cap PO DAILY 05/21/25 08/19/25 History mg-160 mg-1,000 mg capsule (Fish Oil) Allergies/Adverse Reactions Allergy/AdvReac Type Severity Reaction Status Date / Time No Known Allergies Allergy Verified 07/22/25 08:13 Current Medications: Generic Name Dose Route Start Last Admin Trade Name Freq PRN Reason Stop Dose Admin Sodium Chloride 1,000 mls @ 30 mls/hr 08/19/25 08:00 08/19/25 08:47 Sodium Chloride 0.9% IV 08/20/25 07:59 30 mls/hr .Q24H JERRY Administration Pertinent History/Comorbid Conditions* Medical History (Updated 06/04/25 @ 10:03 by JULIANA Oneil) Diabetes JESS (obstructive sleep apnea) ASHD (arteriosclerotic heart disease) Ischemic cardiomyopathy Obesity Dyslipidemia HTN (hypertension) Surgical History (Updated 04/12/25 @ 11:50 by JULIANA Oneil) S/P knee surgery S/P PTCA (percutaneous transluminal coronary angioplasty) Family History (Updated 03/17/20 @ 11:56 by Talisha Medina RN) Father, AGE 58 CAD (coronary artery disease) Father Myocardial infarction Father Cancer Mother BREAST Stroke Mother Social History Smoking and tobacco/nicotine status: never used tobacco/nicotine Alcohol intake: current Substance/Drug Use: never Household members: spouse Marital status: Current occupation: [employer]/ retired Pertinent Exam Findings alert, oriented x 3, operative site marked and procedure specific exam findings Please refer to preoperative anesthesia evaluation today for heart and lung findings Please refer to detail orthopedic examination on the 06/26/2025 for right knee examination listed below: Right Knee Exam: ROM (5 -110? ) degrees TTP over retropatellar space Patellar crepitus with ROM Medial joint line tenderness to palpation Lateral joint line tenderness to palpation Mild joint effusion Negative Oralia's, pain noted Negative Mackenzie's Negative anterior drawer (5-10? ) degrees of Varus/Valgus malalignment, correctable on exam Stable Varus and Valgus stress Gross motor sensory intact Smooth hip ROM, No pain Left knee incision well-healed no signs infection, stable varus valgus stress, good range of motion no significant pain Recommendations Risks and benefits of procedure reviewed and Patient/family agree to proceed Surgery/Procedure today Other Plans: Plan to proceed to the OR today for right total knee arthroplasty?Chris robotic assisted. Patient understands the ins and outs procedure the risk benefits complication alternative surgical nonsurgical treatment options. Understanding risk of surgery patient elects proceed with surgical invention all questions answered this time. It has been over 90 days since last intra-articular right knee cortisone injection he has had no change in his health and cleared the preoperative clearance process with Dr. Munoz his PCP, hemoglobin A1c 7.8. Patient is ready proceed with surgical intervention today all questions answered at this time. He is done well with his left total knee arthroplasty and ready to proceed with the right today. Coding Level of Care Code Acute Code for Chg Fwd
[2025-08-19] MEDS: ceFAZolin 3,000 MG in sodium chloride 0.9% (plus) 100 ML 200 MG IV (13:06)
[2025-08-19] MEDS: tranexamic acid 1,000 mg/10mL SDV 1000 MG IV (13:45)
[2025-08-19] MEDS: tranexamic acid 1,000 mg/10mL SDV 1000 MG XX (14:25)
[2025-08-19] MEDS: ROPivacaine 0.2% Premix 100 mL 200 MG INTRA-ARTI (14:25)
--- NOTE | 2025-08-19 16:21 | XRR_ITS ---
PROCEDURE INFORMATION: Exam: XR Right Knee Exam date and time: 08/19/2025 5:23 PM Age: 64 years old Clinical indication: Device placement; Joint replacement hardware; Prior surgery; Surgery date: Post-operative (0-2 days); Surgery type: RT knee; Additional info: Post op RT knee TECHNIQUE: Imaging protocol: Radiologic exam of the right knee. Views: 1 or 2 views. COMPARISON: CT knee RT [facility] [id number] 07/08/2025 10:27 AM FINDINGS: Bones/joints: Status post cemented right total knee arthroplasty and patellar resurfacing with gas in the joint space. Hardware is intact. Soft tissues: Regional soft tissue swelling. Overlying surgical janki. XR/XR knee RT 1-2V [id number] IMPRESSION: Right knee arthroplasty postsurgical changes with intact hardware.
--- NOTE | 2025-08-19 16:29 | ANE.PACU2 ---
Inpatient post-anesthesia follow up: Airway intact: Yes Vital signs: Temperature 97.6 F Pulse Rate 75 Respiratory Rate 16 Blood Pressure 141/63 Pulse Oximetry 99 Oxygen Delivery Me thod Simple Mask Oxygen Flow Rate 10 Fraction of Inspir ed Oxygen Hydration adequate: Yes Nausea and vomiting: No Pain level: 1 Mental status: Baseline
--- NOTE | 2025-08-19 16:44 | P.OP_ITS ---
Operative Report Date of procedure: August 19, 2025 Surgeon: Harry Neal DO Maintenance Technician 3Rd Shift: Stone Neal PA-C: PA was necessary for assistance in this case with leg positioning retraction and protection of neurovascular structures as well as assistance in implantation wound closure and dressing application. Procedure: Preoperative diagnosis: Right knee degenerative joint disease Post-op diagnosis: Same, with severe flexion contracture Procedure done: Right total knee arthroplasty?Chris robotic assisted (modifier 22?case complexity secondary to patient's 16 degree flexion contracture deformity and only could flex to 85 degrees, this requiring numerous releases and complexity and gap balancing due to patient's contracture, case required twice as much time for osteophyte removal as well as gap balancing and femur patellar and tibia cuts) Implants: [place] triathlon size 7 femur CR cemented?Right [place] triathlon size? 6 tibia universal baseplate cemented [place] triathlon asymmetric patella size 38 mm [place] triathlon polyethylene 10mm Surgeon: Harry Neal DO Estimated blood?loss: 40 mL Tourniquet 96mins IV fluids: 2000 mL Urine output: 600 mL Complications: None Condition: stable Disposition: floor Brief History: Patient is a 64-year-old male with with chronic?Right knee degenerative joint disease.? Patient has been worked up in the outpatient setting in the orthopedic office at this point time through shared decision making given? [id number] arthritis as well as failed conservative treatment, and pt would?like to proceed with a?Right total knee arthroplasty.? Through shared decision making elected to proceed with surgical intervention for?Right total knee arthroplasty with Chris robotic assisted..? We talked about continued conservative treatment and surgical intervention as far as the risk benefits complications alternatives surgical and nonsurgical treatment options.? At this point time understanding patient risks with surgery he agrees to proceed with surgical intervention.? Once again? risk with surgery include but are not?limited to make it better make it worse blood clot, heart attack, stroke, on the table, infection, injury to nerves or vessels, persistent pain, arthrofibrosis, implant failure.? Understanding these risks patient agrees to proceed with surgical intervention consent was obtained in the preoperative holding area for Right total knee arthroplasty?Chris robotic assisted.? All questions answered. Procedure: Patient was seen and evaluated in the preoperative holding area.? Consent was reviewed and signed with patient with plan for?Right total knee arthroplasty.? All questions answered.? Correct extremity marked.? Patient seen and evaluated by the anesthesia department and once cleared for surgery was taken back to the operative suite.? Patient was placed into a supine position on the OR table.? All bony prominences were well-padded.? Patient was appropriately secured to the bed.? Patient underwent anesthesia per the anesthesia department.? Patient received anesthesia and? [place]atham catheter was placed.? A nonsterile tourniquet was applied to the?Right thigh.? At this point in time a final timeout performed.? Patient received appropriate preoperative antibiotics and TXA. Next the?Right?lower extremity was then prepped and draped in standard orthopedic fashion. Esmarch tourniquet was used exsanguinate the?Right?lower extremity.? Tourniquet was insufflated to 250 mmHg. A standard anterior incision was made over midline of the knee.? Sharp scalpel excision through skin and subcutaneous tissue full-thickness skin flaps were made.? Fascia was elevated off of the extensor retinaculum was stable with medial parapatellar arthrotomy was then made.? The performed standard sequential releases..? Immediately on entry into the joint patient was found to have severe eburnated bone and tricompartmental arthritic changes noted.? With significant osteophyte formation.? Patient of note was found to have a severe contracture immediately encountering the joint or the knee only ranged from roughly 16 to 85 degrees. I had to utilize a rongeur around patella osteophytes immediately just to have mobilization for flexion just to proceed the case. Next the the patella was then stuffed and the knee was then flexed.?? Willis was placed superiorly around the anterior aspect of the femur this was freed of synovium and I subsequently then placed by 2 femur pins to establish my femur arrays for the Chris robot.? These were then placed bicortically and? femur array was then appropriately secured with appropriate visualization.? Next attention was turned towards the tibial rays.? These were then drilled sequentially bicortically in parallel fashion and intraincisional.? I then placed my guide as well as my tibial array on in place.? This was appropriately secured and had excellent visualization with the Chris robot.? Next the tibial checkpoint as well as femur checkpoint were then placed.? At this point time I then subsequently established my head center as well as my medial?lateral malleoli as well as my checkpoints.? Next utilizing standard Chris technology I then mapped out the appropriate points and confirmation points around the femur as well as the tibia in standard fashion.? Once this was then done I then removed all osteophytes in preparation for dynamic testing.? All osteophytes were removed as well as I removed the ACL and the PCL was excised due to its significant tearing and degeneration noted.? Should be noted that this portion of the procedure took excessively long. Patient's severe flexion contracture which was 16 degrees and only ranged to roughly 85 degrees. This part of the procedure took twice as long to remove the osteophytes then baseline. At this point time the knee was brought into full extension and we performed our standard evaluation of our gap balancing stressing his?ligaments and extension as well as flexion appropriate adjustments were made to have appropriate gap balancing in both flexion and extension.? This plan for final cuts were planned which were made to accommodate for patient's severe flexion contracture as well as correction of deformity within the ligamentous tolerances. Of note this gap balancing and dynamic stress testing and planning for cuts took twice as long as a normal total knee due to its complexity of contracture.? We get a preoperative plan evaluating our implants which was a size 7 femur and a size 6 tibia.? Next we brought in the Chris robot and sequentially made our femur cuts.? All excess bony cuts were then removed.? Finally we made our tibial cut.? Given patient's severe arthritis once again removal of patient's femur and tibial cuts took twice as long as baseline standard total knee practice. Once this was done a standard PCL retractor was then placed into this position I excised the medial and?lateral meniscus.? The tibial cut was then subsequently removed all excess bony debris was removed.? I then utilized a?lamina retail salesworker and remove the posterior osteophytes.? At this point time sized the tibia and confirmed this was a size 6.? I utilized our blunt probe to establish rotation of tibial implant.? Once this was done I then placed my tibia size 6 trial in appropriate position and then subsequently placed tibial pins to hold this into place placed and trialed up to a size 10 mm poly as well as a size 7 femur which was appropriately impacted in place knee was then subsequently brought into extension. Trials were then assessed,? this was stable with varus valgus stress in extension as well as had symmetrical translation when brought into flexion demonstrating symmetrical gaps. I had excellent balance gaps in flexion and extension with varus and valgus stresses.? At this point I was satisfied with these implants these were then verified and opened on the back table size 6 tibia, size 7 femur,? size 10 mm polythickness.? We did confirm appropriate gap balancing and stresses as well as alignment utilizingShe Perez and were satisfied with this plan.? ?At this point time with my trials in place I then towel clip the patella everted this made appropriate measurements subsequently utilizing freehand technique performed by patellar resurfacing this was confirmed to be appropriate resection and subsequently sized to be a 38 mm asymmetric. This part of the procedure took twice as well as baseline given patient's severe osteophytes which must have been removed initially. Patient had a severely large patella and considerable deformity this is noted to being 28mm thick and utilizing freehand technique perform patellar resurfacing. My drill peg guides were then clamped and appropriate position and appropriate position in the patella for appropriate tracking and parallel with the joint.? Pegs were drilled trial implant was placed and the knee was then subsequently ranged and found to have excellent patellar tracking.? Femur pegs were then drilled.? At this point time all of our trial implants were removed.? All checkpoints as well as guidepins and arrays were removed and appropriate counts made.? Satisfied with our tibial placement rotation I then utilized the keel punch and prepped the tibia.? The wound bed? was thoroughly irrigated and dried and prepped for cementation.? Cement was mixed on the back table.? Once cement was ready this was then covered onto the tibia and the tibial baseplate was then impacted and all excess cement was removed.? Next the polyethylene was then impacted into place on the tibial baseplate.? Next cement was placed onto the femur as well as under the femur implants and impacted in to place and all excess cement was extruded and removed.? Knee was taken into full extension? to clear all excess cement was removed.? Warm saline was placed over the joint.? I then towel clip patella and dried for cementation. cemented the patella into place.? This was all clamped and the cement was allowed to cure.? Thorough irrigation performed with pulse?lavage.? I then placed my periarticular injection while the cement was curing.? Once cured the knee was taken through range of motion and had excellent stability and gaps were balanced in flexion and extension.? Tourniquet was then deflated. hemostasis satisfactory with electrocautery.? Vancomycin powder was placed in wound bed for antibiotic infection prophylaxis next I then subsequently closed the capsule with Ethibond suture as well as a running strata fix suture.? Knee was then taken through range of motion 30 times.? Next the skin was then closed in?layered fashion of running stratifix sutures of deep and subcutenous tissue and skin.? ?closed in flexion and janki for skin.? Incision was covered with francisco incisional VAC, with ABDs soft roll and Martin wrap.? Patient was then awakened from anesthesia and taken to PACU in stable condition. Disposition: Patient taken to PACU in stable condition will be admitted to the floor for pain control PT/OT weight-bear as tolerated?Right?lower extremity dressing changes as needed, DVT prophylaxis. Pain control. Patient will receive appropriate postoperative antibiotics. patient will be seen today by the internal medicine team for medical management.? Patient will follow up with the office in 2 weeks.? Patient understands agrees with current plan.? All questions answered.
[2025-08-19] MEDS: fentaNYL 50 mcg/mL INJ 2mL IVP (16:50)
--- NOTE | 2025-08-19 17:02 | W.PM.BPON ---
Date of Procedure: [August 19, 2025] Surgeon: [Dr. Neal DO] Gse Mechanic(s): [Stone Neal PA-C] Procedure(s) performed: [Right total knee arthroplasty with Chris robotic assist.] Findings of the procedure(s): [Right knee degenerative joint disease. Procedure went well as planned] Estimated blood loss: [40 mL] Specimen(s) removed: [Femur and tibial shavings] Post-operative diagnosis: [Right knee degenerative joint disease.]
--- NOTE | 2025-08-19 17:16 | PM.CONSULT ---
Documented by User: Marimar Cristina NP 08/19/25 17:43 Providers/Reason For Consult Consulting Physician/Specialty*: Harry Neal DO Reason for Consult*: Medical management Attending Physician: Harry Neal DO Primary Care Provider: Goldy Vanegas DO History of Present Illness History of Present Illness Akil Kapoor is a 64 y/o M w/ pmhx of DM2, hypertension, dyslipidemia, obesity, ischemic cardiomyopathy, ASHD, JESS- wears a CPAP at night is being seen today s/p right total knee arthroplasty with Dr. Neal. Patient will be admitted to hospitalist services under consultation for medical management. CBC, CMP noted to be unremarkable. He is now status post right knee arthroplasty. Right knee x-ray; total knee replacement in excellent position. Right knee dressing in place; clean, dry, intact, no saturation. Normal postoperative swelling and tenderness to palpation to the right knee. Patient is able to move toes & plantarflex/dorsiflex ankle. Patient educated on importance of diabetes tx with close blood glucose monitoring, insulin sliding scale, diet and high infection risk to surgical site. Patient refuses insulin sliding scale understands the risks. Patient educated to seek medical attention if she has uncontrolled bleeding, uncontrolled pain, or any other new concerning symptoms. Review of Systems General: Reports: 10 or more systems reviewed and unremarkable except in HPI and below Medications/Allergies Home Medications ?Medication ?Instructions ?Recorded ?Confirmed ?Last Taken ?Type multivitamin (Multiple Vitamins 1 tab PO DAILY 04/21/20 08/20/25 08/13/25 History tablet) omega 1-txi-btv-fish oil 100 1 cap PO DAILY 05/21/25 08/20/25 08/05/25 History mg-160 mg-1,000 mg capsule (Fish Oil) amlodipine 10 mg tablet 10 mg PO DAILY #90 tabs 06/18/25 08/20/25 08/18/25 Rx atenolol 50 mg tablet 50 mg PO DAILY #90 tabs 06/18/25 08/20/25 08/18/25 Rx chlorthalidone 25 mg tablet 25 mg PO .daily #90 tabs 06/18/25 08/20/25 08/18/25 Rx rosuvastatin 20 mg tablet (Crestor) 20 mg PO DAILY #90 tabs 06/18/25 08/20/25 08/18/25 Rx valsartan 160 mg tablet 160 mg PO BID #180 tabs 06/18/25 08/20/25 08/18/25 Rx Allergies Allergy/AdvReac Type Severity Reaction Status Date / Time No Known Allergies Allergy Verified 08/20/25 02:18 Current Medications Generic Name Dose Route Start Last Admin Trade Name Freq PRN Reason Stop Dose Admin Fentanyl 50 mcg 08/19/25 16:09 08/19/25 16:50 Fentanyl 50 Mcg/Ml Inj 2ml IVP 08/20/25 16:09 50 mcg Q5M PRN Administration Pain level 6-10 PACU Phase I Sodium Chloride 1,000 mls @ 30 mls/hr 08/19/25 08:00 08/19/25 14:54 Sodium Chloride 0.9% IV 08/20/25 07:59 Infused .Q24H JERRY Infusion PFSH Acute PFSH: Medical History Diabetes JESS (obstructive sleep apnea) ASHD (arteriosclerotic heart disease) Ischemic cardiomyopathy Obesity Dyslipidemia HTN (hypertension) Surgical History S/P knee surgery S/P PTCA (percutaneous transluminal coronary angioplasty) Family History Mother Stroke Cancer BREAST Father , AGE 58 CAD (coronary artery disease) Myocardial infarction Social History Smoking and tobacco/nicotine status: never used tobacco/nicotine Alcohol intake: current Substance/Drug Use: never Household members: spouse Marital status: Current occupation: [employer]/ retired Vitals/I&O/Wt Last Vital Signs Temp 98.2 F 08/19/25 17:00 Pulse 80 08/19/25 17:10 Resp 15 08/19/25 17:10 BP 133/65 08/19/25 17:10 Pulse Ox 93 08/19/25 17:10 O2 Del Method Room Air 08/19/25 17:10 O2 Flow Rate 10 08/19/25 16:25 12/01/25 12/01/25 12/01/25 06:59 14:59 22:59 Intake Total 1200 / 1200 1000 / 2200 Output Total 640 / 640 Balance 1200 / 1200 360 / 1560 Weight last 48 hrs Weight 146.51 kg Physical Exam Narrative: Left knee examination: Dressing in place, clean, dry, intact, no saturation. Normal postoperative swelling and tenderness to palpation to the left knee. Patient is able to move toes & plantarflex/dorsiflex ankle. Const: COMMON NORMALS: no acute distress, patient oriented x3 and well nourished HENMT: COMMON NORMALS: normocephalic, atraumatic and moist oral mucous membranes HEAD & SCALP: normocephalic and atraumatic Eye: COMMON NORMALS: Equal, round and reactive pupils present and conjunctivae normal CONJUNCTIVA: Yes conjunctivae normal PUPIL: Yes Equal, round and reactive pupils present Neck/C-Spine: COMMON NORMALS: no lymphadenopathy, supple and no JVD Lymph: LYMPHATIC: no lymphadenopathy noted Resp: COMMON NORMALS: normal respiratory effort and clear to auscultation bilaterally AUSCULTATION: clear to auscultation bilaterally Cardio: COMMON NORMALS: no JVD GI: COMMON NORMALS: Normal to inspection, nondistended, normoactive bowel sounds present, Soft to palpation and non-tender PALPATION: Yes Soft to palpation Neuro: COMMON NORMALS: patient oriented x3 Urinary Catheter Management: Cheatham: Cath Placed During This Visit: yes Urinary Catheter Date of Insertion: 08/19/25 Urinary Catheter Time of Insertion: 13:24 Data 08/20/25 05:25 08/20/25 05:25 A&P Assessment and plan 1. S/P right knee arthroscopy: 2. Dyslipidemia: 3. HTN (hypertension): 4. Diabetes: 5. Obesity: 6. JESS (obstructive sleep apnea): Plan: S/P Right total knee arthroplasty: ? Reviewed vitals, CBC, BMP, knee x-ray, surgical note ? Pain management ? PT ? Eliquis for VTE prophylaxis ? Follow up with Orthopedics ? Patient educated to seek medical attention if she has uncontrolled bleeding, uncontrolled pain, or any other new concerning symptoms. DM2 ? A1c ? Blood glucose monitoring, ACHS ? Low regimen sliding scale ? Hypoglycemic protocol ? Carb consistent diet Hyperlipidemia ? Continue home medication rosuvastatin 20 mg po dly Hypertension ? Continue home medication amlodipine 10 mg PO dly ? Continue home medication atenolol 50mg dly ? Continue home medication Chlorthalidone 25 mg PO JESS (obstructive sleep apnea) ? Continue home CPAP CODE STATUS: Full code VTE prophylaxis: SCDs, Lovenox 40 mg subcu dly PDMP PDMP Reviewed: Not Reviewed Consult Attestations Medical Necessity Statement: Patient admitted to observation for under 2 midnight stay for medical management status post right knee arthroplasty. Coding Level of Care Code 38014 Diagnoses S/P right knee arthroscopy Z98.890 Dyslipidemia E78.5 HTN (hypertension) I10 Diabetes E11.9 Obesity E66.9 JESS (obstructive sleep apnea) G47.33 Time Spent (min) 70 Documented by User: Janina Cheatham FLOOR SUPERVISOR, BUILDING CONSTRUCTION IRONWORKER 08/20/25 09:06 Medications/Allergies Home Medications ?Medication ?Instructions ?Recorded ?Confirmed ?Last Taken ?Type multivitamin (Multiple Vitamins 1 tab PO DAILY 04/21/20 08/20/25 08/13/25 History tablet) omega 2-jkj-sus-fish oil 100 1 cap PO DAILY 05/21/25 08/20/25 08/05/25 History mg-160 mg-1,000 mg capsule (Fish Oil) amlodipine 10 mg tablet 10 mg PO DAILY #90 tabs 06/18/25 08/20/25 08/18/25 Rx atenolol 50 mg tablet 50 mg PO DAILY #90 tabs 06/18/25 08/20/25 08/18/25 Rx chlorthalidone 25 mg tablet 25 mg PO .daily #90 tabs 06/18/25 08/20/25 08/18/25 Rx rosuvastatin 20 mg tablet (Crestor) 20 mg PO DAILY #90 tabs 06/18/25 08/20/25 08/18/25 Rx valsartan 160 mg tablet 160 mg PO BID #180 tabs 06/18/25 08/20/25 08/18/25 Rx Allergies Allergy/AdvReac Type Severity Reaction Status Date / Time No Known Allergies Allergy Verified 08/20/25 02:18 PFSH Acute PFSH: Medical History Diabetes JESS (obstructive sleep apnea) ASHD (arteriosclerotic heart disease) Ischemic cardiomyopathy Obesity Dyslipidemia HTN (hypertension) Surgical History S/P knee surgery S/P PTCA (percutaneous transluminal coronary angioplasty) Family History Mother Stroke Cancer BREAST Father , AGE 58 CAD (coronary artery disease) Myocardial infarction Social History Smoking and tobacco/nicotine status: never used tobacco/nicotine Alcohol intake: current Substance/Drug Use: never Household members: spouse Marital status: Current occupation: [employer]/ retired Physical Exam Urinary Catheter Management: Cheatham: Cath Placed During This Visit: yes Data 08/20/25 05:25 08/20/25 05:25 A&P Assessment and plan 1. S/P right knee arthroscopy: 2. Dyslipidemia: 3. HTN (hypertension): 4. Diabetes: 5. Obesity: 6. JESS (obstructive sleep apnea): Plan: S/P Right total knee arthroplasty: ? Reviewed vitals, CBC, BMP, knee x-ray, surgical note ? Pain management ? PT ? Eliquis for VTE prophylaxis ? Follow up with Orthopedics ? Patient educated to seek medical attention if she has uncontrolled bleeding, uncontrolled pain, or any other new concerning symptoms. DM2 ? A1c ? Blood glucose monitoring, ACHS ? Low regimen sliding scale ? Hypoglycemic protocol ? Carb consistent diet Patient states he does not wish to receive insulin or have his blood glucose checked during his hospitalization. Educated patient regarding the importance of glucose monitoring and insulin administration in the postoperative recovery, wound healing, and infection prevention. Discussed potential complications including delayed healing, infection, and hyperglycemia. Patient verbalized understanding the risk but continues to refuse. Hyperlipidemia ? Continue home medication rosuvastatin 20 mg po dly Hypertension ? Continue home medication amlodipine 10 mg PO dly ? Continue home medication atenolol 50mg dly ? Continue home medication Chlorthalidone 25 mg PO JESS (obstructive sleep apnea) ? Continue home CPAP CODE STATUS: Full code VTE prophylaxis: SCDs, Lovenox 40 mg subcu dly PDMP PDMP Reviewed: Not Reviewed Consult Attestations Medical Necessity Statement: Patient admitted to observation for under 2 midnight stays for medical management status post right knee arthroplasty. Diagnoses S/P right knee arthroscopy Z98.890 Dyslipidemia E78.5 HTN (hypertension) I10 Diabetes E11.9 Obesity E66.9 JESS (obstructive sleep apnea) G47.33 Time Spent (min) 70
[2025-08-19] MEDS: calcium carb-vit d 600mg/400unit 1 Tablet 1 EACH PO (18:09)
[2025-08-19] MEDS: oxyCODONE 5 mg IR Tab/Cap PO ×2 (18:11→23:34)
[2025-08-19] MEDS: mupirocin oint 22 gm 1 APPLIC NASAL (18:11)
[2025-08-19] MEDS: sennosides-docusate Tablet 2 TAB PO (18:12)
[2025-08-19] MEDS: chlorhexidine gluconate 0.12% Btl 473 mL 30 ML MUCOUS MEM ×2 (18:12→23:39)
[2025-08-19] MEDS: ceFAZolin 3,000 MG in sodium chloride 0.9% (plus) 50 ML 100 MG IV (21:00)
--- NOTE | 2025-08-19 21:33 | PC.NURSE ---
blood glucose was taken at 2054- 941. patient refused insulin at this time, reported to this rn in report was that hospitalist was aware that patient would refuse insulin if needed.
[2025-08-19] MEDS: tranexamic acid 1,000 MG/100 ML PREMIX 600 MG IV (22:10)
--- NOTE | 2025-08-19 23:00 | PC.NURSE ---
Patient up to standing at bedside with minimal assistance. Patient ambulated in halls approx 200 feet with use of a walker and RN standby assist. Patient tolerated ambulation well and returned to bed.
[2025-08-20] MEDS: acetaminophen 1,000 MG/100 ML PIGGYBACK 400 MG IV ×2 (01:30→08:48)
[2025-08-20 03:58] VITALS: RESP 18
[2025-08-20] MEDS: oxyCODONE 5 mg IR Tab/Cap PO ×2 (03:58→10:59)
[2025-08-20] MEDS: mupirocin oint 22 gm 1 APPLIC NASAL (05:26)
[2025-08-20] MEDS: calcium carb-vit d 600mg/400unit 1 Tablet 1 EACH PO (05:26)
[2025-08-20] MEDS: chlorhexidine gluconate 0.12% Btl 473 mL 30 ML MUCOUS MEM ×2 (05:26→11:01)
[2025-08-20] MEDS: ceFAZolin 3,000 MG in sodium chloride 0.9% (plus) 50 ML 100 MG IV ×2 (05:27→12:57)
[2025-08-20] MEDS: multivitamin therapeutic Tablet 1 TAB PO (05:27)
[2025-08-20] MEDS: sennosides-docusate Tablet 2 TAB PO (05:27)
[2025-08-20 05:30] VITALS: BP 148/80; PULSE 76; RESP 16; TEMP 36.6
[2025-08-20 05:35] LABS: Hematocrit 36.6 % (37-53); Hemoglobin 12.50 g/dL (11.27-16.99); Mean Corpuscular HGB Conc 34.2 g/dL (30-55); Mean Corpuscular Hemoglobin 32.0 pg (27-33); Mean Corpuscular Volume 93.6 fl (82-101); Nucleated Red Blood Cells % 0 %; Platelet Count 189 10^3/cmm (157-399); Red Blood Count 3.91 10^6/uL (3.85-5.65); White Blood Count 11.63 10^3/uL (3.29-11.43)
[2025-08-20 05:50] LABS: Anion Gap 14.0 (5-19); Blood Urea Nitrogen 18 mg/dL (8-23); Calcium 8.3 mg/dL (8.5-10.5); Carbon Dioxide 25 mmol/L (22-29); Chloride 102 mmol/L (98-107); Glucose 159 mg/dL (65-115); Osmolality Calculated 289 mOsm/kg (285-295); Potassium 4.0 mmol/L (3.5-5.1); Sodium 137 mmol/L (136-145)
[2025-08-20] MEDS: APIXABAN 2.5 MG TABLET PO (08:48)
[2025-08-20 10:59] VITALS: RESP 16
--- NOTE | 2025-08-20 13:15 | P.DS_ITS ---
Discharge Providers Date of Admission: 08/19/25 16:08 Date of Discharge: August 20, 2025 Attending Provider at Admission: Harry Neal DO Attending Provider at Discharge: Harry Neal DO Consults: Hospitalist Primary Care Provider: Goldy Vanegas DO Diagnoses at Discharge Discharge Diagnosis 1. Status post total right knee replacement: 2. Dyslipidemia: 3. Essential hypertension: 4. Diabetes: 5. Obesity: 6. JESS (obstructive sleep apnea): Reason for Visit Reason for Visit: M17.11 Brief History: Status post right total knee arthroplasty?Chris robotic assisted Hospital Course Hospital Course Patient presented to the preoperative holding area with plan for right total knee arthroplasty after patient has been worked up in the outpatient setting for failed conservative treatment of [right] knee degenerative joint disease. Once cleared by anesthesia for surgery patient subsequently was taken back to the operative suite underwent anesthesia per anesthesia department and then subsequently underwent a [right] total knee arthroplasty. Procedure was performed without any complications patient was taken to PACU in stable condition patient recovered well in PACU and then was admitted to the floor postoperatively internal medicine was consulted and on board for medical management and assistance with care. Patient received appropriate PT/OT, posto perative antibiotics, postoperative TXA, pain control, postoperative DVT prophylaxis. Elevation and ice. Patient encouraged for knee range of motion allowed weightbearing as tolerated to the operative lower extremity. Dressing was changed as needed, labs were monitored daily. Patient recovered well postoperatively and worked well and progressed well with therapy. It was determined on postoperative day 1 the patient was stable for discharge from an orthopedic standpoint and medicine. Patient was comfortable with discharge and plan was discharged home. Patient received appropriate discharge instructions as well as pain medication and DVT prophylaxis postoperatively. Given appropriate instructions for dressing management. Patient will follow-up with Dr. Neal/orthopedics in the office in 2 weeks. All questions answered. Understand if there is any issues questions or concerns and contact the office. Physical Exam Narrative: Right knee examination: Dressing on in place, clean dry and intact. No evidence of saturation. Patient has normal postoperative swelling and tenderness to palpation to the knee. Compartments are soft compressible,'s calf soft and nontender. Sensations intact to light touch distally. Distal pulses are palpable. Patient is able to wiggle toes as well as plantarflex and dorsiflex ankle. Urinary Catheter Management: Cheatham: Cath Placed During This Visit: yes, but has since been removed by the nurse Reason for Continuing Indwelling Catheter: Decision to DC Catheter Urinary Catheter Date of Insertion: 08/19/25 Urinary Catheter Time of Insertion: 13:24 Date Urinary Catheter Removed: 08/19/25 Time Urinary Catheter Discontinued: 23:00 Discharge Data Studies Completed and Pending Completed Studies During Hospitalization Category Date Time Status XR knee RT 1-2V [id number] Routine Exams 08/19/25 16:21 Completed Pending at discharge Category Date Time Status Basic Metabolic Panel AM LABS Lab 08/21/25 04:00 Ordered Basic Metabolic Panel AM LABS Lab 08/22/25 04:00 Ordered Complete Blood Count w/Auto AM LABS Lab 08/21/25 04:00 Ordered Complete Blood Count w/Auto AM LABS Lab 08/22/25 04:00 Ordered Radiology Impressions Knee X-Ray 08/19/25 16:21 IMPRESSION: Right knee arthroplasty postsurgical changes with intact hardware. Laboratory Results WBC 11.63 10^3/uL (3.29-11.43) H 08/20/25 05:25 RBC 3.91 10^6/uL (3.85-5.65) 08/20/25 05:25 Hgb 12.50 g/dL (11.27-16.99) 08/20/25 05:25 Hct 36.6 % (37-53) L 08/20/25 05:25 MCV 93.6 fl (82-101) 08/20/25 05:25 MCH 32.0 pg (27-33) 08/20/25 05:25 MCHC 34.2 g/dL (30-55) 08/20/25 05:25 RDW 13.5 % (12.1-15.1) 08/20/25 05:25 Plt Count 189 10^3/cmm (157-399) 08/20/25 05:25 MPV 10.6 fL (7.4-10.4) H 08/20/25 05:25 Neut % (Auto) 77.8 % 08/20/25 05:25 Lymph % (Auto) 14.3 % 08/20/25 05:25 [place] % (Auto) 7.0 % 08/20/25 05:25 Eos % (Auto) 0.3 % 08/20/25 05:25 Baso % (Auto) 0.2 % 08/20/25 05:25 Neut # (Auto) 9.06 10^3/uL (1.8-7.7) H 08/20/25 05:25 Lymph # (Auto) 1.7 10^3/uL (0.8-4.8) 08/20/25 05:25 [place] # (Auto) 0.8 10^3/uL (0.2-0.9) 08/20/25 05:25 Eos # (Auto) 0.0 10^3/uL (0.0-0.8) 08/20/25 05:25 Baso # (Auto) 0.0 10^3/uL (0.0-0.1) 08/20/25 05:25 Nucleated RBC % (auto) 0 % 08/20/25 05:25 Nucleated RBCs # 0.0 /100WBC 08/20/25 05:25 Sodium 137 mmol/L (136-145) 08/20/25 05:25 Potassium 4.0 mmol/L (3.5-5.1) 08/20/25 05:25 Chloride 102 mmol/L (98-107) 08/20/25 05:25 Carbon Dioxide 25 mmol/L (22-29) 08/20/25 05:25 Anion Gap 14.0 (5-19) 08/20/25 05:25 BUN 18 mg/dL (8-23) 08/20/25 05:25 Creatinine 0.7 mg/dL (0.7-1.2) 08/20/25 05:25 GFR Calculation 113.2 mL/min (90-130) 08/20/25 05:25 Glucose 159 mg/dL (65-115) H 08/20/25 05:25 Calculated Osmolality 289 mOsm/kg (285-295) 08/20/25 05:25 Calcium 8.3 mg/dL (8.5-10.5) L 08/20/25 05:25 Blood Type O Positive 08/19/25 08:25 Rho(D) Type Rh positive 08/19/25 08:25 Antibody Screen Negative 08/19/25 08:25 Vitals Last Vital Signs Temp 97.8 F 08/20/25 05:30 Pulse 76 08/20/25 05:30 Resp 16 08/20/25 10:59 BP 148/80 08/20/25 05:30 Pulse Ox 94 08/19/25 23:35 O2 Del Method Room Air 08/19/25 23:35 O2 Flow Rate 10 08/19/25 16:25 Discharge Plan Discharge Patient Disposition: Home Condition: Stable Prescriptions: New Eliquis 2.5 mg tablet 2.5 mg PO BID 14 Days Qty: 28 0RF calcium carbonate-vitamin D3 [Calcium 600 + D(3)] 600 mg-10 mcg (400 unit) tablet 1 tab PO DAILY 30 Days Qty: 30 0RF oxycodone 5 mg tablet 5 mg PO Q6H PRN (Reason: pain postop) 7 Days Qty: 28 0RF cefadroxil 500 mg capsule 500 mg PO BID 7 Days Qty: 14 0RF cyclobenzaprine 10 mg tablet 10 mg PO TID PRN (Reason: muscle spasm) 7 Days Qty: 21 0RF Continued multivitamin [Multiple Vitamins] Tablet 1 tab PO DAILY Fish Oil 100-160-1,000 mg capsule 1 cap PO DAILY rosuvastatin [Crestor] 20 mg tablet 20 mg PO DAILY Qty: 90 3RF chlorthalidone 25 mg tablet 25 mg PO .daily Qty: 90 3RF atenolol 50 mg tablet 50 mg PO DAILY Qty: 90 3RF amlodipine 10 mg tablet 10 mg PO DAILY Qty: 90 3RF No Action valsartan 160 mg tablet See Rx Instructions .ROUTE .COMPLEX Qty: 180 3RF Dose Instruction: TAKE 1 TABLET BY MOUTH TWICE A DAY Rx Instructions: TAKE 1 TABLET BY MOUTH TWICE A DAY Drawing Press Operator OK for DC: Orthopedics Discharge Order = DC NOW: Discharge Order (Routine); Ordered 08/20/25 Ordered By: Harry Neal Referrals: Stone Neal PA [Physician Brine Plant Operator, Orthopedics] - 09/03/25 2:30 pm Discharge Diet: Regular Discharge Activity: Limit activity as instructed and Use walker/crutches as instructed Patient Instructions: Acute Wound Care (DC), Precautions after Total Joint Replacement Surgery (DC), Opioid Safety (DC), Total Knee Replacement (DC), OB Food/Drug Interaction Guide, Opioid Safety, Post Anesthesia Care, Patient Portal & Kimberley Instructions Activity Restrictions/Additional Instructions: Orthopedic discharge instructions: Keep incisions clean dry and intact, leave francisco dressing on in place and we will take dressing down after the 2 weeks After 72 hours May remove soft Martin bandage and cotton dressing Patient may weight-bear as tolerate to the operative extremity Utilize walker as needed Encourage knee range of motion Ice and elevate as needed for pain and swelling Take pain medication as prescribed Take antinausea medication as needed supplement with calcium vitamin D for bone health and healing take antibiotics as prescribed Pain medication can cause constipation. take [id number] stool softeners and or MiraLAX. Take prescribed Eliquis twice daily for the next 14 days for blood clot prevention May supplement for pain with Tylenol yfjx-upn-iwvaprx as needed(1000 mg every 8 hours-do not exceed more than 3000mg in 24-hour period) No baths or soaks Follow-up in the orthopedic office in 2 weeks Contact the office for any questions or concerns Discharge Attestations Time Spent in Discharge Care*: less than 30 min Quality Metrics Clinical Quality Measures [ No reported AMI, CVA or VTE this stay] Coding Level of Care Code Acute Code for Chg Fwd Diagnoses Status post total right knee replacement Z96.651 Dyslipidemia E78.5 Essential hypertension I10 Hypertension type: essential hypertension Diabetes E11.9 Obesity E66.9 JESS (obstructive sleep apnea) G47.33
[2025-08-20 13:35] VITALS: BP 163/79; PULSE 88; RESP 16; TEMP 36.8; O2SAT 96
--- NOTE | 2025-08-20 13:40 | P.PN_ITS ---
Subjective 2 Subjective: Patient seen and examined, awake and alert, denying any complaints at this point of time. Vitals/I&O/Wt Last Vital Signs Temp 97.8 F 08/20/25 05:30 Pulse 76 08/20/25 05:30 Resp 16 08/20/25 10:59 BP 148/80 08/20/25 05:30 Pulse Ox 94 08/19/25 23:35 O2 Del Method Room Air 08/19/25 23:35 O2 Flow Rate 10 08/19/25 16:25 08/19/25 08/20/25 08/20/25 22:59 06:59 14:59 Intake Total 1250 / 2450 1123.333 / 3573.333 Output Total 1540 / 1540 1200 / 2740 Balance -290 / 910 -76.667 / 833.333 Weight last 48 hrs Weight 146.51 kg Weight 146.51 kg Physical Exam 2 Urinary Catheter Management: Cheatham: Cath Placed During This Visit: yes, but has since been removed by the nurse Reason for Continuing Indwelling Catheter: Decision to DC Catheter Urinary Catheter Date of Insertion: 08/19/25 Urinary Catheter Time of Insertion: 13:24 Date Urinary Catheter Removed: 08/19/25 Time Urinary Catheter Discontinued: 23:00 Data 08/20/25 05:25 08/20/25 05:25 A&P Assessment and plan 1. S/P right knee arthroscopy: 2. Dyslipidemia: 3. Essential hypertension: 4. Diabetes: 5. Obesity: 6. JESS (obstructive sleep apnea): Plan: S/P Right total knee arthroplasty: ? Reviewed vitals, CBC, BMP, knee x-ray, surgical note ? Pain management ? PT ? Eliquis for VTE prophylaxis ? Follow up with Orthopedics ? Patient educated to seek medical attention if she has uncontrolled bleeding, uncontrolled pain, or any other new concerning symptoms. DM2 ? A1c 7.8 ? Blood glucose monitoring, ACHS ? Low regimen sliding scale ? Hypoglycemic protocol ? Carb consistent diet Patient states he does not wish to receive insulin or have his blood glucose checked during his hospitalization. Educated patient regarding the importance of glucose monitoring and insulin administration in the postoperative recovery, wound healing, and infection prevention. Discussed potential complications including delayed healing, infection, and hyperglycemia. Patient verbalized understanding the risk but continues to refuse. Can try diet control at this time or follow-up with PCP for oral agents. Hyperlipidemia ? Continue home medication rosuvastatin 20 mg po dly Hypertension ? Continue home medication amlodipine 10 mg PO dly ? Continue home medication atenolol 50mg dly ? Continue home medication Chlorthalidone 25 mg PO JESS (obstructive sleep apnea) ? Continue home CPAP Elevated white count Patient denies any complaints at this time. Likely reactive from surgery. Can trend. Or can follow-up with PCP too CODE STATUS: Full code VTE prophylaxis: SCDs, Lovenox 40 mg subcu daily PDMP PDMP Reviewed: Not Reviewed Attestations 2 Medical Necessity Statement*: clear from med standpoint to be discharged Coding Level of Care Code Acute Code for Chg Fwd Diagnoses S/P right knee arthroscopy Z98.890 Dyslipidemia E78.5 Essential hypertension I10 Hypertension type: essential hypertension Diabetes E11.9 Obesity E66.9 JESS (obstructive sleep apnea) G47.33
== END 2025-08-20 14:45 | disposition home or self-care (01) ==
LOC: OBGYN 16:09
PROVIDERS: Physician Assistant; Admitting Provider Student in an Organized Health Care Education/Training Program; PCP Family Medicine; Visit Provider Student in an Organized Health Care Education/Training Program
PROC: 8E0Y0CZ Robotic Assisted Procedure of Lower Extremity, Open Approach (ICD-10-PCS; CPT 27447; principal; 2025-08-19 09:25)
DX: M17.11 Unilateral primary osteoarthritis, right knee (principal); E11.9 Type 2 diabetes mellitus without complications; G47.33 Obstructive sleep apnea (adult) (pediatric); Z99.89 Dependence on other enabling machines and devices; I25.10 Atherosclerotic heart disease of native coronary artery without angina pectoris; I10 Essential (primary) hypertension; E78.5 Hyperlipidemia, unspecified; E66.01 Morbid (severe) obesity due to excess calories; Z68.41 Body mass index [BMI] 40.0-44.9, adult
CPT/HCPCS: 27447; 20985; 36415; 51702; 73560; 80048; 85025; 86850; 86900; 97110; 97161; 97165; A4216; C1713; C1776; G0378; J0131; J0169; J0690; J1100; J1885; J2250; J2270; J2405; J2704; J2795; J3010; J3373; J7030; J7120; J9999; L8699

== ENCOUNTER 2025-08-26 14:22 | Emergency (ER) | payer MEDICARE, OTHER, SELFPAY ==
[2025-08-26 14:31] VITALS: BP 160/82; PULSE 87; TEMP 37.2; O2SAT 96; BMI 40.8
--- NOTE | 2025-08-26 14:49 | USCV_ITS ---
Akil Kapoor Age: 64 Gender: M : 1960 Exam Date: 08/26/2025 15:01 Ordering Phys: Derrick Dye Technologist: ELOISA Exam Location: [facility] [place] Indication: RIGHT LEG PAIN/ SWELLING SATUS POST KNEE ARTHROPLASTY 1 WEEK AGO HISTORY: Lower extremity swelling. Status post knee replacement. PROCEDURES: Venous duplex imaging was performed in only the right lower extremity. The following venous structures were evaluated: common femoral vein, profunda vein, proximal portion of the greater saphenous vein, superficial femoral vein, and the popliteal vein. In addition, the posterior tibial and peroneal trunk were evaluated. FINDINGS: Normal 2-D Doppler and augmentation and compressibility throughout the lower extremity venous structures. Additional imaging through the proximal calf veins also reveals no thrombus. Limited evaluation of the greater saphenous vein is patent with no thrombus. CONCLUSIONS No DVT right lower extremity. Dr. Kellie Nicole DO (Electronically Signed) Final Date: 26 August 2025 15:51 S
--- NOTE | 2025-08-26 14:49 | XR_ITS ---
WS: [id number] XR knee RT 3V* [id number] REASON FOR EXAM: surgery x1 week, pain/swelling to right knee FINDINGS: Right knee arthroplasty. Skin closure small janki overlying the midline of the knee. Components of the arthroplasty are intact and in proper position Unchanged compared to 08/19/2025. No bone erosion or periosteal reaction. No periprosthetic lucency. Nonspecific soft tissue swelling superior to the patella. No radiopaque soft tissue foreign body. XR/XR knee RT 3V* [id number] IMPRESSION: Postoperative right knee as above.
--- NOTE | 2025-08-26 15:13 | W.ED.EXTPRO ---
Documented by User: JULIANA Garcia 08/26/25 16:44 HPI - Extremity Problem General: Chief complaint: Extremity Injury, Lower Stated complaint: right leg black bruising post op Time Seen by Provider: 08/26/25 14:38 Source: patient Mode of arrival: ambulatory Limitations: no limitations History of Present Illness: Patient is a 64-year-old male who presents emergency department complaining of right leg pain and swelling onset this morning. He had right knee replacement [address] Neal, states he has had baseline pain since then primarily his complaint is more swelling and bruising at this time. Bruising primarily after surgery was to the upper leg and now it is down into the foot and calf. Does not report any posterior calf tenderness or pain with dorsiflexion, most of his pain is to the anterior edmonds on the right side. Does note redness associated with the edmonds. States overall the pain has been controlled, he has no reports of fever or nausea/vomiting. Has been ambulatory and doing his exercises postoperatively, this has not significantly worsened he is just concerned of the swelling and bruising. He is on Eliquis. No trauma since surgery. MD Complaint: extremity pain and extremity swelling Onset (ago): week(s) (1) Pain Consistency: constant Location: right and lower extremity Associated symptoms: Deny chest pain, fever(s) or rash Context: recent surgery/procedure Related Data Home Medications ?Medication ?Instructions ?Recorded ?Confirmed multivitamin (Multiple Vitamins 1 tab PO DAILY 04/21/20 08/20/25 tablet) omega 1-vno-woj-fish oil 100 1 cap PO DAILY 05/21/25 08/20/25 mg-160 mg-1,000 mg capsule (Fish Oil) Previous Rx's ?Medication ?Instructions ?Recorded amlodipine 10 mg tablet 10 mg PO DAILY #90 tabs 06/18/25 atenolol 50 mg tablet 50 mg PO DAILY #90 tabs 06/18/25 chlorthalidone 25 mg tablet 25 mg PO .daily #90 tabs 06/18/25 rosuvastatin 20 mg tablet (Crestor) 20 mg PO DAILY #90 tabs 06/18/25 apixaban 2.5 mg tablet (Eliquis) 2.5 mg PO BID 2 weeks #28 tabs 08/19/25 calcium 600 mg (as 1 tab PO DAILY Bone health and 08/20/25 carbonate)-vitamin D3 10 mcg (400 healing 30 days #30 tabs unit) tablet (Calcium 600 + D(3)) valsartan 160 mg tablet See Rx Instructions .Route 08/23/25 .COMPLEX #180 tabs blood-glucose sensor (Dexcom G7 #1 ea 08/25/25 Sensor device) blood-glucose,power machine operator,cont #1 ea 08/25/25 (Dexcom G7 Swimming Coach Or Instructor) Allergies Allergy/AdvReac Type Severity Reaction Status Date / Time No Known Allergies Allergy Verified 08/26/25 14:39 Review of Systems General: Reports: 10 or more systems reviewed and unremarkable except in HPI and below Const: Denies: fever(s) or chills Card: Denies: chest pain Resp: Denies: dyspnea or productive cough GI: Denies: abdominal pain, nausea, vomiting or diarrhea : Denies: flank pain Musc: Reports: extremity pain and extremity swelling; Denies: neck pain, back pain, joint pain, joint swelling, joint redness, joint warmth, limited range of motion or muscle weakness Skin/Breast: Reports: other (RLE bruising); Denies: rash Neuro: Denies: headache(s), numbness in extremities or weakness in extremities PFSH ED PFSH: Medical History Diabetes JESS (obstructive sleep apnea) ASHD (arteriosclerotic heart disease) Ischemic cardiomyopathy Obesity Dyslipidemia HTN (hypertension) Surgical History S/P knee surgery S/P PTCA (percutaneous transluminal coronary angioplasty) Family History Mother Stroke Cancer BREAST Father , AGE 58 CAD (coronary artery disease) Myocardial infarction Social History Smoking and tobacco/nicotine status: never used tobacco/nicotine Alcohol intake: current Substance/Drug Use: never Household members: spouse Marital status: Current occupation: [employer]/ retired Physical Exam Const: COMMON NORMALS: no acute distress, patient oriented x3, no limitations, healthy appearing, alert and well nourished OTHER: nontoxic, antalgic gait into ED but able to bear weight HENMT: COMMON NORMALS: normocephalic and atraumatic HEAD & SCALP: normocephalic and atraumatic Neck/C-Spine: COMMON NORMALS: full ROM, supple and no meningeal signs Resp: COMMON NORMALS: normal respiratory effort, No use of accessory muscles and clear to auscultation bilaterally AUSCULTATION: clear to auscultation bilaterally Cardio: COMMON NORMALS: regular rate and regular rhythm RATE: regular rate RHYTHM: regular rhythm Extremity: COMMON NORMALS: full ROM NARRATIVE EXTREMITY EXAM: Bandage overlying right anterior knee, surrounding skin appears noncellulitic, range of motion is intact at the knee. There is swelling to the right anterior edmonds with associated redness, and posterior bruising of the right lower extremity from the calf that extends down into the calcaneus. He has full range of motion at the foot as well. Cap refill is normal distally. Pulses palpable distally. The right knee is nontender to palpation. Neuro: COMMON NORMALS: patient oriented x3, moves all extremities, no focal motor deficits and no sensory deficits noted SENSORIUM/ORIENTATION: Yes alert MENINGEAL SIGNS: Yes no meningeal signs Skin: COMMON NORMALS: no rashes or lesions noted GENERAL SKIN EXAM: no rashes or lesions noted Course Vital Signs: Vital signs: Vital Signs Temperature 98.9 F 08/26/25 14:31 Pulse Rate 91 08/26/25 16:46 Blood Pressure 147/99 08/26/25 16:46 Pulse Oximetry 97 08/26/25 16:46 Oxygen Delivery Me thod Room Air 08/26/25 14:31 MDM - Extremity (Nontraumatic) Medical Decision Making Patient 64-year-old male presenting 1 week after right total knee arthroplasty with increased right leg swelling, bruising, and mild anterior edmonds erythema. Vital stable and patient nontoxic, ambulatory with assistance. Exam notable for unilateral swelling, dependent ecchymosis from knee to foot, and mild warmth/erythema over the anterior edmonds; surgical incision clean, dry, and intact with no drainage; distal neurovascular status normal. Differential included DVT, postoperative hematoma, cellulitis, and early periprosthetic joint infection. Duplex ultrasound of the right lower extremity negative for DVT. Right knee x-ray showed no acute osseous abnormality or hardware complication. Labs with ESR 47 and CRP 31, values consistent with expected postoperative inflammation and not suggestive of acute PJI. Given reassuring workup, normal joint function, and clinical stability, presentation most consistent with postoperative hematoma with possible mild overlying cellulitis versus reactive inflammatory changes. I favor reactive inflammatory changes. Patient already on cefadroxil, which provides appropriate coverage for nonpurulent cellulitis; will continue this regimen. There is no indication for aspiration or IV antibiotics at this time. Strict return precautions are reviewed with the patient including worsening redness, fever, drainage, increasing pain, or impaired weightbearing. Patient appropriate for discharge with follow-up with orthopedics in 1 to 2 days[address] I spoke to Dr. Adam, on-call orthopedist, agreeing with this plan and no further action in the ED at this time. Patient and family in the room agree with this plan at this time. Lab Data 08/26/25 15:42 08/26/25 15:42 Radiology Impressions Knee X-Ray 08/26/25 14:49 IMPRESSION: Postoperative right knee as above. Laboratory Results WBC 7.20 10^3/uL (3.29-11.43) 08/26/25 15:42 RBC 4.07 10^6/uL (3.85-5.65) 08/26/25 15:42 Hgb 12.80 g/dL (11.27-16.99) 08/26/25 15:42 Hct 37.8 % (37-53) 08/26/25 15:42 MCV 92.9 fl (82-101) 08/26/25 15:42 MCH 31.4 pg (27-33) 08/26/25 15:42 MCHC 33.9 g/dL (30-55) 08/26/25 15:42 RDW 13.0 % (12.1-15.1) 08/26/25 15:42 Plt Count 283 10^3/cmm (157-399) 08/26/25 15:42 MPV 10.0 fL (7.4-10.4) 08/26/25 15:42 Neut % (Auto) 69.1 % 08/26/25 15:42 Lymph % (Auto) 19.3 % 08/26/25 15:42 Person % (Auto) 6.4 % 08/26/25 15:42 Eos % (Auto) 2.8 % 08/26/25 15:42 Baso % (Auto) 0.7 % 08/26/25 15:42 Neut # (Auto) 4.98 10^3/uL (1.8-7.7) 08/26/25 15:42 Lymph # (Auto) 1.4 10^3/uL (0.8-4.8) 08/26/25 15:42 Person # (Auto) 0.5 10^3/uL (0.2-0.9) 08/26/25 15:42 Eos # (Auto) 0.2 10^3/uL (0.0-0.8) 08/26/25 15:42 Baso # (Auto) 0.1 10^3/uL (0.0-0.1) 08/26/25 15:42 Nucleated RBC % (auto) 0 % 08/26/25 15:42 Nucleated RBCs # 0.0 /100WBC 08/26/25 15:42 ESR 47 mm/hr (0-10) H 08/26/25 15:42 Sodium 132 mmol/L (136-145) L 08/26/25 15:42 Potassium 3.9 mmol/L (3.5-5.1) 08/26/25 15:42 Chloride 96 mmol/L (98-107) L 08/26/25 15:42 Carbon Dioxide 25 mmol/L (22-29) 08/26/25 15:42 Anion Gap 14.9 (5-19) 08/26/25 15:42 BUN 18 mg/dL (8-23) 08/26/25 15:42 Creatinine 0.8 mg/dL (0.7-1.2) 08/26/25 15:42 GFR Calculation 97.0 mL/min (90-130) 08/26/25 15:42 Glucose 232 mg/dL (65-115) H 08/26/25 15:42 Calculated Osmolality 283 mOsm/kg (285-295) L 08/26/25 15:42 Calcium 9.2 mg/dL (8.5-10.5) 08/26/25 15:42 Total Bilirubin 0.5 mg/dL (0.15-1.2) 08/26/25 15:42 AST 21 U/L (0-40) 08/26/25 15:42 ALT 46 U/L (0-41) H 08/26/25 15:42 Alkaline Phosphatase 55 U/L (40-130) 08/26/25 15:42 C-Reactive Protein 31.3 mg/L (0.0-4.9) H 08/26/25 15:42 Total Protein 6.9 g/dL (6.6-8.7) 08/26/25 15:42 Albumin 3.8 g/dL (3.5-5.2) 08/26/25 15:42 Globulin 3.1 g/dL (1.3-4.6) 08/26/25 15:42 All radiology interpretation(s) finalized by discharge Discharge Plan Discharge Patient Disposition: Home Clinical Impression: Postoperative edema, Status post total knee replacement, right Condition: Stable Prescriptions: No Action multivitamin [Multiple Vitamins] Tablet 1 tab PO DAILY Fish Oil 100-160-1,000 mg capsule 1 cap PO DAILY rosuvastatin [Crestor] 20 mg tablet 20 mg PO DAILY Qty: 90 3RF chlorthalidone 25 mg tablet 25 mg PO .daily Qty: 90 3RF atenolol 50 mg tablet 50 mg PO DAILY Qty: 90 3RF amlodipine 10 mg tablet 10 mg PO DAILY Qty: 90 3RF valsartan 160 mg tablet See Rx Instructions .ROUTE .COMPLEX Qty: 180 3RF Dose Instruction: TAKE 1 TABLET BY MOUTH TWICE A DAY Rx Instructions: TAKE 1 TABLET BY MOUTH TWICE A DAY (DME) Dexcom G7 Sensor Device See Rx Instructions .ROUTE .MEDSUPPLY Qty: 1 12RF Rx Instructions: As directed (DME) Dexcom G7 Swimming Coach Or Instructor Misc See Rx Instructions .ROUTE .MEDSUPPLY Qty: 1 0RF Rx Instructions: As directed Eliquis 2.5 mg tablet 2.5 mg PO BID 14 Days Qty: 28 0RF calcium carbonate-vitamin D3 [Calcium 600 + D(3)] 600 mg-10 mcg (400 unit) tablet 1 tab PO DAILY 30 Days Qty: 30 0RF Discharge Orders: Discharge ED (Routine); Ordered 08/26/25 Ordered By: Derrick Dye Referrals: Goldy Vanegas DO [Primary Care Provider, [facility]] Patient Instructions: Patient Portal & Kimberley Instructions Activity Restrictions/Additional Instructions: TKA Discharge Instructions DIAGNOSIS: Postoperative edema following total right knee replacement ACTIVITY AND MOBILITY: - Begin walking and moving as soon as possible. Early mobility is essential for optimal recovery - Gradually increase your activity level based on your comfort and functional tolerance SWELLING MANAGEMENT: Swelling after knee replacement surgery is normal and expected. Peak swelling typically occurs 6-8 days after surgery and can increase by approximately 10% per day for the first 3 days. To manage swelling: - Apply ice to your knee/leg for 15-20 minutes at a time, several times daily, especially after activity - When resting, position your knee in mild flexion (bent 30-90 degrees) rather than fully straight, which may help reduce swelling in the first week - Elevate your leg when sitting or lying down - Perform ankle pumps and gentle knee exercises as instructed PHYSICAL THERAPY: - You must call the office tomorrow morning to schedule your follow-up appointment this week - Continue your home exercise program daily, including: - Gentle knee bending and straightening exercises - Quadriceps strengthening - Walking practice - Balance activities PAIN MANAGEMENT: - Take pain medications as previously prescribed - Use ice as described above - Contact your surgeon if pain is not controlled with prescribed medications WOUND CARE: - Keep your incision clean and dry - Do not remove dressing unless instructed - Watch for signs of infection (see return precautions below) STRICT RETURN PRECAUTIONS - SEEK IMMEDIATE MEDICAL ATTENTION IF YOU EXPERIENCE: Call 911 or go to the Emergency Department immediately for: - Chest pain or difficulty breathing - Sudden severe shortness of breath - Calf pain, warmth, redness, or swelling that is significantly worse than your surgical knee (possible blood clot) - Sudden onset of confusion or altered mental status Contact your orthopedic surgeon immediately or go to the Emergency Department for: - Fever greater than 101.5?F (38.6?C) - Increasing redness, warmth, or red streaks around the incision - Drainage from the incision (pus, foul-smelling fluid, or increasing bloody drainage) - Wound opening or separation - Severe pain not controlled by prescribed medications - Inability to bear weight or move the knee (sudden loss of function) - Excessive swelling that is rapidly worsening or associated with severe pain - Signs of allergic reaction (rash, hives, severe itching) Contact your surgeon's office during business hours for: - Questions about your recovery or exercises - Concerns about your progress - Need for medication refills - Persistent nausea or vomiting FOLLOW-UP: - Call the orthopedic office tomorrow morning to schedule your appointment this week - Bring a list of your current medications and any questions to your appointment IMPORTANT REMINDERS: - Do not drive while taking narcotic pain medications - Avoid smoking, as it can impair healing - Stay well-hydrated and maintain good nutrition - Continue any medications for your other medical conditions as prescribed If you have any questions or concerns that are not urgent, you may contact the orthopedic office during regular business hours. Print Language: Slovenian Coding Level of Care Code ED Oil Driller for Chg Fwd Documented by User: Sang Singh DO 08/27/25 07:06 HPI - Extremity Problem General: Chief complaint: Extremity Injury, Lower Stated complaint: right leg black bruising post op Time Seen by Provider: 08/26/25 14:38 Related Data Home Medications ?Medication ?Instructions ?Recorded ?Confirmed multivitamin (Multiple Vitamins 1 tab PO DAILY 04/21/20 08/20/25 tablet) omega 3-csf-efk-fish oil 100 1 cap PO DAILY 05/21/25 08/20/25 mg-160 mg-1,000 mg capsule (Fish Oil) Previous Rx's ?Medication ?Instructions ?Recorded amlodipine 10 mg tablet 10 mg PO DAILY #90 tabs 06/18/25 atenolol 50 mg tablet 50 mg PO DAILY #90 tabs 06/18/25 chlorthalidone 25 mg tablet 25 mg PO .daily #90 tabs 06/18/25 rosuvastatin 20 mg tablet (Crestor) 20 mg PO DAILY #90 tabs 06/18/25 apixaban 2.5 mg tablet (Eliquis) 2.5 mg PO BID 2 weeks #28 tabs 08/19/25 calcium 600 mg (as 1 tab PO DAILY Bone health and 08/20/25 carbonate)-vitamin D3 10 mcg (400 healing 30 days #30 tabs unit) tablet (Calcium 600 + D(3)) valsartan 160 mg tablet See Rx Instructions .Route 08/23/25 .COMPLEX #180 tabs blood-glucose sensor (Dexcom G7 #1 ea 08/25/25 Sensor device) blood-glucose,power machine operator,cont #1 ea 08/25/25 (Dexcom G7 Swimming Coach Or Instructor) Allergies Allergy/AdvReac Type Severity Reaction Status Date / Time No Known Allergies Allergy Verified 08/26/25 14:39 PFSH ED PFSH: Medical History Diabetes JESS (obstructive sleep apnea) ASHD (arteriosclerotic heart disease) Ischemic cardiomyopathy Obesity Dyslipidemia HTN (hypertension) Surgical History S/P knee surgery S/P PTCA (percutaneous transluminal coronary angioplasty) Family History Mother Stroke Cancer BREAST Father , AGE 58 CAD (coronary artery disease) Myocardial infarction Social History Smoking and tobacco/nicotine status: never used tobacco/nicotine Alcohol intake: current Substance/Drug Use: never Household members: spouse Marital status: Current occupation: [employer]/ retired Course Vital Signs: Vital signs: Vital Signs Temperature 98.9 F 08/26/25 14:31 Pulse Rate 91 08/26/25 16:46 Blood Pressure 147/99 08/26/25 16:46 Pulse Oximetry 97 08/26/25 16:46 Oxygen Delivery Me thod Room Air 08/26/25 14:31 MDM - Extremity (Nontraumatic) Medical Decision Making Patient 64-year-old male presenting 1 week after right total knee arthroplasty with increased right leg swelling, bruising, and mild anterior edmonds erythema. Vital stable and patient nontoxic, ambulatory with assistance. Exam notable for unilateral swelling, dependent ecchymosis from knee to foot, and mild warmth/erythema over the anterior edmonds; surgical incision clean, dry, and intact with no drainage; distal neurovascular status normal. Differential included DVT, postoperative hematoma, cellulitis, and early periprosthetic joint infection. Duplex ultrasound of the right lower extremity negative for DVT. Right knee x-ray showed no acute osseous abnormality or hardware complication. Labs with ESR 47 and CRP 31, values consistent with expected postoperative inflammation and not suggestive of acute PJI. Given reassuring workup, normal joint function, and clinical stability, presentation most consistent with postoperative hematoma with possible mild overlying cellulitis versus reactive inflammatory changes. I favor reactive inflammatory changes. Patient already on cefadroxil, which provides appropriate coverage for nonpurulent cellulitis; will continue this regimen. There is no indication for aspiration or IV antibiotics at this time. Strict return precautions are reviewed with the patient including worsening redness, fever, drainage, increasing pain, or impaired weightbearing. Patient appropriate for discharge with follow-up with orthopedics in 1 to 2 days. I spoke to Dr. Adam, on-call orthopedist, agreeing with this plan and no further action in the ED at this time. Patient and family in the room agree with this plan at this time. Chart reviewed Lab Data 08/26/25 15:42 08/26/25 15:42 Radiology Impressions Knee X-Ray 08/26/25 14:49 IMPRESSION: Postoperative right knee as above. Laboratory Results WBC 7.20 10^3/uL (3.29-11.43) 08/26/25 15:42 RBC 4.07 10^6/uL (3.85-5.65) 08/26/25 15:42 Hgb 12.80 g/dL (11.27-16.99) 08/26/25 15:42 Hct 37.8 % (37-53) 08/26/25 15:42 MCV 92.9 fl (82-101) 08/26/25 15:42 MCH 31.4 pg (27-33) 08/26/25 15:42 MCHC 33.9 g/dL (30-55) 08/26/25 15:42 RDW 13.0 % (12.1-15.1) 08/26/25 15:42 Plt Count 283 10^3/cmm (157-399) 08/26/25 15:42 MPV 10.0 fL (7.4-10.4) 08/26/25 15:42 Neut % (Auto) 69.1 % 08/26/25 15:42 Lymph % (Auto) 19.3 % 08/26/25 15:42 Person % (Auto) 6.4 % 08/26/25 15:42 Eos % (Auto) 2.8 % 08/26/25 15:42 Baso % (Auto) 0.7 % 08/26/25 15:42 Neut # (Auto) 4.98 10^3/uL (1.8-7.7) 08/26/25 15:42 Lymph # (Auto) 1.4 10^3/uL (0.8-4.8) 08/26/25 15:42 Person # (Auto) 0.5 10^3/uL (0.2-0.9) 08/26/25 15:42 Eos # (Auto) 0.2 10^3/uL (0.0-0.8) 08/26/25 15:42 Baso # (Auto) 0.1 10^3/uL (0.0-0.1) 08/26/25 15:42 Nucleated RBC % (auto) 0 % 08/26/25 15:42 Nucleated RBCs # 0.0 /100WBC 08/26/25 15:42 ESR 47 mm/hr (0-10) H 08/26/25 15:42 Sodium 132 mmol/L (136-145) L 08/26/25 15:42 Potassium 3.9 mmol/L (3.5-5.1) 08/26/25 15:42 Chloride 96 mmol/L (98-107) L 08/26/25 15:42 Carbon Dioxide 25 mmol/L (22-29) 08/26/25 15:42 Anion Gap 14.9 (5-19) 08/26/25 15:42 BUN 18 mg/dL (8-23) 08/26/25 15:42 Creatinine 0.8 mg/dL (0.7-1.2) 08/26/25 15:42 GFR Calculation 97.0 mL/min (90-130) 08/26/25 15:42 Glucose 232 mg/dL (65-115) H 08/26/25 15:42 Calculated Osmolality 283 mOsm/kg (285-295) L 08/26/25 15:42 Calcium 9.2 mg/dL (8.5-10.5) 08/26/25 15:42 Total Bilirubin 0.5 mg/dL (0.15-1.2) 08/26/25 15:42 AST 21 U/L (0-40) 08/26/25 15:42 ALT 46 U/L (0-41) H 08/26/25 15:42 Alkaline Phosphatase 55 U/L (40-130) 08/26/25 15:42 C-Reactive Protein 31.3 mg/L (0.0-4.9) H 08/26/25 15:42 Total Protein 6.9 g/dL (6.6-8.7) 08/26/25 15:42 Albumin 3.8 g/dL (3.5-5.2) 08/26/25 15:42 Globulin 3.1 g/dL (1.3-4.6) 08/26/25 15:42 Discharge Plan Discharge Patient Disposition: Home Clinical Impression: Postoperative edema, Status post total knee replacement, right Condition: Stable Prescriptions: No Action multivitamin [Multiple Vitamins] Tablet 1 tab PO DAILY Fish Oil 100-160-1,000 mg capsule 1 cap PO DAILY rosuvastatin [Crestor] 20 mg tablet 20 mg PO DAILY Qty: 90 3RF chlorthalidone 25 mg tablet 25 mg PO .daily Qty: 90 3RF atenolol 50 mg tablet 50 mg PO DAILY Qty: 90 3RF amlodipine 10 mg tablet 10 mg PO DAILY Qty: 90 3RF valsartan 160 mg tablet See Rx Instructions .ROUTE .COMPLEX Qty: 180 3RF Dose Instruction: TAKE 1 TABLET BY MOUTH TWICE A DAY Rx Instructions: TAKE 1 TABLET BY MOUTH TWICE A DAY (DME) Dexcom G7 Sensor Device See Rx Instructions .ROUTE .MEDSUPPLY Qty: 1 12RF Rx Instructions: As directed (DME) Dexcom G7 Swimming Coach Or Instructor Misc See Rx Instructions .ROUTE .MEDSUPPLY Qty: 1 0RF Rx Instructions: As directed Eliquis 2.5 mg tablet 2.5 mg PO BID 14 Days Qty: 28 0RF calcium carbonate-vitamin D3 [Calcium 600 + D(3)] 600 mg-10 mcg (400 unit) tablet 1 tab PO DAILY 30 Days Qty: 30 0RF Discharge Orders: Discharge ED (Routine); Ordered 08/26/25 Ordered By: Derrick Dye Referrals: Goldy Vanegas DO [Primary Care Provider, [facility]] Patient Instructions: Patient Portal & Kimberley Instructions Activity Restrictions/Additional Instructions: TKA Discharge Instructions DIAGNOSIS: Postoperative edema following total right knee replacement ACTIVITY AND MOBILITY: - Begin walking and moving as soon as possible. Early mobility is essential for optimal recovery - Gradually increase your activity level based on your comfort and functional tolerance SWELLING MANAGEMENT: Swelling after knee replacement surgery is normal and expected. Peak swelling typically occurs 6-8 days after surgery and can increase by approximately 10% per day for the first 3 days. To manage swelling: - Apply ice to your knee/leg for 15-20 minutes at a time, several times daily, especially after activity - When resting, position your knee in mild flexion (bent 30-90 degrees) rather than fully straight, which may help reduce swelling in the first week - Elevate your leg when sitting or lying down - Perform ankle pumps and gentle knee exercises as instructed PHYSICAL THERAPY: - You must call the office tomorrow morning to schedule your follow-up appointment this week - Continue your home exercise program daily, including: - Gentle knee bending and straightening exercises - Quadriceps strengthening - Walking practice - Balance activities PAIN MANAGEMENT: - Take pain medications as previously prescribed - Use ice as described above - Contact your surgeon if pain is not controlled with prescribed medications WOUND CARE: - Keep your incision clean and dry - Do not remove dressing unless instructed - Watch for signs of infection (see return precautions below) STRICT RETURN PRECAUTIONS - SEEK IMMEDIATE MEDICAL ATTENTION IF YOU EXPERIENCE: Call 911 or go to the Emergency Department immediately for: - Chest pain or difficulty breathing - Sudden severe shortness of breath - Calf pain, warmth, redness, or swelling that is significantly worse than your surgical knee (possible blood clot) - Sudden onset of confusion or altered mental status Contact your orthopedic surgeon immediately or go to the Emergency Department for: - Fever greater than 101.5?F (38.6?C) - Increasing redness, warmth, or red streaks around the incision - Drainage from the incision (pus, foul-smelling fluid, or increasing bloody drainage) - Wound opening or separation - Severe pain not controlled by prescribed medications - Inability to bear weight or move the knee (sudden loss of function) - Excessive swelling that is rapidly worsening or associated with severe pain - Signs of allergic reaction (rash, hives, severe itching) Contact your surgeon's office during business hours for: - Questions about your recovery or exercises - Concerns about your progress - Need for medication refills - Persistent nausea or vomiting FOLLOW-UP: - Call the orthopedic office tomorrow morning to schedule your appointment this week - Bring a list of your current medications and any questions to your appointment IMPORTANT REMINDERS: - Do not drive while taking narcotic pain medications - Avoid smoking, as it can impair healing - Stay well-hydrated and maintain good nutrition - Continue any medications for your other medical conditions as prescribed If you have any questions or concerns that are not urgent, you may contact the orthopedic office during regular business hours. Print Language: Slovenian Coding Level of Care Code ED [employer] for Deandre Umanzor
[2025-08-26 15:56] LABS: Hematocrit 37.8 % (37-53); Hemoglobin 12.80 g/dL (11.27-16.99); Mean Corpuscular HGB Conc 33.9 g/dL (30-55); Mean Corpuscular Hemoglobin 31.4 pg (27-33); Mean Corpuscular Volume 92.9 fl (82-101); Nucleated Red Blood Cells % 0 %; Platelet Count 283 10^3/cmm (157-399); Red Blood Count 4.07 10^6/uL (3.85-5.65); White Blood Count 7.20 10^3/uL (3.29-11.43)
[2025-08-26 16:15] LABS: Alanine Aminotransferase 46 U/L (0-41); Albumin Level 3.8 g/dL (3.5-5.2); Alkaline Phosphatase 55 U/L (40-130); Anion Gap 14.9 (5-19); Aspartate Amino Transferase 21 U/L (0-40); Blood Urea Nitrogen 18 mg/dL (8-23); Calcium 9.2 mg/dL (8.5-10.5); Carbon Dioxide 25 mmol/L (22-29); Chloride 96 mmol/L (98-107); Globulin 3.1 g/dL (1.3-4.6); Glucose 232 mg/dL (65-115); Osmolality Calculated 283 mOsm/kg (285-295); Potassium 3.9 mmol/L (3.5-5.1); Sodium 132 mmol/L (136-145); Total Protein 6.9 g/dL (6.6-8.7)
[2025-08-26 16:46] VITALS: BP 147/99; PULSE 91; O2SAT 97
== END 2025-08-26 17:02 | disposition home or self-care (01) ==
PROVIDERS: Emergency Provider Physician Assistant; PCP Family Medicine
DX: R60.9 Edema, unspecified (principal); Z96.651 Presence of right artificial knee joint; Z79.01 Long term (current) use of anticoagulants; E11.9 Type 2 diabetes mellitus without complications; E78.5 Hyperlipidemia, unspecified; I10 Essential (primary) hypertension
CPT/HCPCS: 36415; 73562; 80053; 85025; 85651; 86140; 93971; 99284

== ENCOUNTER → 2025-09-03 14:34 | Outpatient (BNVA) | payer MEDICARE, OTHER, SELFPAY | PROVIDERS: PCP Family Medicine; Visit Provider Physician Assistant | DX: Z98.890 Other specified postprocedural states (principal); Z96.651 Presence of right artificial knee joint | CPT/HCPCS: 73560; 73565; 99024 ==